=== PATIENT | female | born 2005 | race African-American/Black ===

== ENCOUNTER 2025-01-24 14:41 | Emergency (ER) | payer MEDICAID, SELFPAY ==
--- NOTE | ~2025-01-24 | XR_ITS ---
CHEST RADIOGRAPH, PA AND LATERAL CLINICAL HISTORY: chest pain . COMPARISON: None available TECHNIQUE: PA and lateral views of the chest. FINDINGS The cardiomediastinal silhouette is unremarkable. The lungs are clear. Visualized osseous structures and soft tissues are unremarkable. IMPRESSION: No focal infiltrate or effusion. Reviewed, dictated and finalized at location A.
[2025-01-24 14:43] VITALS: BP 132/101; PULSE 85; RESP 20; TEMP 36.9; O2SAT 100
--- NOTE | 2025-01-24 14:43 | ECG_ITS ---
Test Date: 2025-01-24 14:50:29 Measurements Intervals [place] Rate: 75 P: 29 CA: 137 QRS: 50 QRSD: 93 T: 40 QT: 363 QTc: 408 Interpretive Statements SINUS RHYTHM CANNOT R/O SEPTAL INFARCT, AGE INDETERMINATE BASELINE ARTIFACT- I, II, III, AVR, AVL, AVF, V1, V3, V5 ABNORMAL ECG No previous ECG available for comparison Electronically Signed On 01-24-2025 17:19:20 CDT by Robert Frias D.O.
[2025-01-24 14:51] VITALS: PULSE 79; O2SAT 99
[2025-01-24 14:52] VITALS: O2SAT 99
--- NOTE | 2025-01-24 14:57 | ED_ITS ---
HPI - Chest Pain General Chief Complaint: Chest Pain Stated Complaint: syncope, CP, anxiety History of Present Illness HPI narrative: 19-year-old female with history of asthma presenting to the emergency department after syncope and chest pain. Patient states that she was feeling anxious and started having tingling in her both hands while he was working. She felt dizzy and lightheaded and passed out briefly. Regained consciousness quickly without any apparent injuries. She states she is having chest pain and feels anxious. Has been using her asthma inhaler recently without needing to use it today. No difficulty breathing right now, no headache, vision changes, trauma, abdominal pain, back pain. Denies chance of . She was otherwise in her normal state of health. No history of any cardiac disease in herself. Does not take any prescription medications otherwise. Related Data Allergies Allergy/AdvReac Type Severity Reaction Status Date / Time No Known Allergies Allergy Verified 01/24/25 14:48 Review of Systems 2 Review of Systems: As reviewed above in HPI Exam 2 Narrative: GENERAL: [Well-appearing, well-nourished, and in no acute distress.] HEAD: [Normocephalic, atraumatic.] EYES: [PERRLA and EOMI.] ENT: Nares clear, no rhinorrhea or epistaxis. Mucous membranes moist. NECK: Supple. CHEST: [Clear to auscultation. No respiratory distress.] HEART: [Regular rate and rhythm]. No murmur heard. [Normal peripheral pulses.] ABDOMEN: [Soft, nondistended], [nontender], [No rigidity or guarding] EXTREMITIES: Normal range of motion. [No edema.] SKIN: Warm, dry, no rash. NEURO: [No focal deficits]. Alert and oriented [x3.] PSYCH: Tearful affect and anxious Course Vital Signs Vital signs: Vital Signs Temperature 36.9 C 01/24/25 14:43 Pulse Rate 85 01/24/25 14:43 Respiratory Rate 01/24/25 14:43 Blood Pressure 132/101 H 01/24/25 14:43 Pulse Oximetry 100 01/24/25 14:43 Oxygen Delivery Room Air 01/24/25 14:43 Temperature 36.9 C 01/24/25 14:43 Pulse Rate 87 01/24/25 16:11 Respiratory Rate 01/24/25 16:11 Blood Pressure 114/85 01/24/25 16:11 Pulse Oximetry 100 01/24/25 16:11 Oxygen Delivery Room Air 01/24/25 14:52 MDM - Chest Pain MDM Narrative Medical decision making narrative: 19-year-old female with history of asthma presenting to the emergency department with anxious feelings, tingling in her hands, lightheadedness dizziness and a brief syncopal episode. Endorses chest pain at this time. Examination is reassuring. Patient is anxious appearing but not any acute distress with normal vital signs without any tachycardia, fever, hypoxia significant blood pressure elevations or hypotension. She is strong symmetric pulses, clear breath sounds throughout both lung martinez without any wheezing, tachypnea or decreased aeration. No signs of DVT on examination. Meets low Wells criteria. Suspect anxiety, vasovagal syncope, orthostatic syncope, less likely cardiovascular or cardiothoracic process such as ACS or pneumonia/pneumothorax. Clear breath sounds do not suspect asthma exacerbation. Chest x-ray was ordered, EKG, blood work was CBC, CMP, magnesium level. test ordered. She was given a fluid bolus and Toradol and re-evaluated. EKG was nonischemic without ectopy. Workup shows no leukocytosis or anemia. Normal platelet count. Electrolytes are unremarkable. Normal renal function. Normal hepatic function. Normal glucose. Negative test. Chest x-ray without any infiltrate or effusion. EKG shows normal sinus rhythm, no signs of ST segment elevations, depressions. Patient is stable from hemodynamic perspective and has unremarkable workup here. Clinically she is safe and stable for discharge home with primary care provider follow-up. Medical Records Data Attestation: I reviewed the patient's medical records. Lab Data Attestation: I reviewed the patient's lab results. 01/24/25 15:01 01/24/25 15:01 Labs: Lab Results 01/24/25 01/24/25 Range/Units 14:59 15:01 WBC 5.0 (4.5-10.0) K/mm3 RBC 4.88 (4.2-5.4) M/mm3 Hgb 13.2 (12.0-15.0) g/dL Hct 40.5 (37.0-47.0) % MCV 83.0 (80-100) fl MCH 27.0 (26-34) pg MCHC 32.6 (32-36) g/dl RDW 12.7 (11.5-14.5) % Plt Count 251 (150-375) k/mm3 MPV 10.0 (7.4-10.4) fl Immature Gran % (Auto) 0.4 (0-0.5) % Neut % (Auto) 47.8 (45.5-73.1) % Lymph % (Auto) 41.6 (18.3-44.2) % Coles % (Auto) 8.8 H (2.6-8.5) % Eos % (Auto) 1.0 (0-4.4) % Baso % (Auto) 0.4 (0.2-1.2) % Lymph # (Auto) 2.07 (0.9-3.2) K/mm3 Coles # (Auto) 0.4 (0.1-0.6) K/mm3 Eos # (Auto) 0.1 (0-0.3) K/mm3 Baso # (Auto) 0.0 (0.0-0.1) K/mm3 Abs Immat Gran (auto) 0.02 (0.00-0.031) K/mm3 Absolute Neuts (auto) 2.4 (1.3-6.7) K/mm3 Absolute Nucleated RBC 0.000 (0.0-0.012) K/mm3 Nucleated RBC % 0.0 (0.0-0.2) % Sodium 137 (137-145) mmol/L Potassium 3.9 (3.4-5.0) mmol/L Chloride 108 H (98-107) mmol/L Carbon Dioxide 19 L (22-30) mmol/L Anion Gap 10 (4-12) mmol/L BUN 19 H (7-17) mg/dL Creatinine 0.78 (0.7-1.0) mg/dL Estim Creat Clear Calc 109 ml/min Estimated GFR > 60 (59 - ) Glucose 93 (65-110) mg/dL POC Capillary Glucose 87 (65-105) mg/dl Calcium 9.4 (8.4-10.2) mg/dL Magnesium 1.9 (1.6-2.3) mg/dL Total Bilirubin 0.5 (0.2-1.3) mg/dL AST 25 (14-36) U/L ALT 24 (6-35) U/L Alkaline Phosphatase 65 (38-126) U/L Total Protein 7.8 (6.3-8.2) g/dL Albumin 4.5 (3.5-5.1) g/dL Serum HCG, Qual Negative Imaging Data Attestation: I personally reviewed and interpreted this imaging study as follows: My impression: Impressions Chest X-Ray 01/24/25 15:35 IMPRESSION: No focal infiltrate or effusion. ECG Data EKG #1: Attestation: I personally reviewed and interpreted this ECG as follows: ECG completion date: 01/24/25 ECG completion time: 14:50 Prior ECG tracings: not available for review Interpretation: No ST segment elevations, depressions or inversions. QTC 408, QRS 93, TX interval 137. Rate of 75 beats per minute. No previous EKG for comparison. No ectopy. Final interpretation normal sinus rhythm. Discharge Plan Discharge Clinical Impression: Chest pain, Syncope and collapse Patient Disposition: Home Condition: Stable Instructions: Antibiotic Form, Chest Pain (ED), Syncope (DC) Additional Instructions: Your laboratory studies, imaging and EKG are all reassuring and normal appearing here. No urgent or emergent concerns are found today. Follow-up with your regular doctor regarding your presentation here in the emergency department. Return with any emergent concerns. Patient Language: Citizen Of [place] Follow-up/Referrals: PHYSICIAN,[employer] BUSINESS ANALYST [Primary Care Provider] - Time of Disposition: 15:48 Quality HEART score for chest pain patients History: slightly suspicious ECG: normal Age: < or = to 45 years Risk factors: no risk factors known Troponin: < or = to 1x normal limit Heart score: 0
[2025-01-24 15:02] LABS: Glucose Point of Care 87 mg/dl (65-105)
[2025-01-24 15:06] LABS: Basophils Percent Auto 0.4 % (0.2-1.2); Eosinophils Absolute Auto 0.1 K/mm3 (0-0.3); Hematocrit 40.5 % (37.0-47.0); Hemoglobin 13.2 g/dL (12.0-15.0); Immature Granulocyte Absolute 0.02 K/mm3 (0.00-0.031); Immature Granulocyte Percent A 0.4 % (0-0.5); Lymphocytes Absolute Auto 2.07 K/mm3 (0.9-3.2); Lymphocytes Percent Auto 41.6 % (18.3-44.2); Mean Corpuscular HGB Conc 32.6 g/dl (32-36); Monocytes Absolute Auto 0.4 K/mm3 (0.1-0.6); Monocytes Percent Auto 8.8 % (2.6-8.5); Neutrophils Absolute Auto 2.4 K/mm3 (1.3-6.7); Neutrophils Percent Auto 47.8 % (45.5-73.1); Platelet Count Result 251 k/mm3 (150-375); Red Blood Count 4.88 M/mm3 (4.2-5.4); Red Cell Distribution Width 12.7 % (11.5-14.5)
[2025-01-24] MEDS: LACTATED RINGERS 1,000 ML 999 ML IV CONT (15:10)
[2025-01-24] MEDS: KETOROLAC 15 MG/ML VIAL (*BKC) IV PUSH (15:10)
[2025-01-24 15:16] LABS: SPREG INTERNAL CONTROL Positive; Serum Qual hCG Negative
[2025-01-24 15:17] LABS: Alanine Aminotransferase 24 U/L (6-35); Albumin Level 4.5 g/dL (3.5-5.1); Alkaline Phosphatase 65 U/L (38-126); Anion Gap 10 mmol/L (4-12); Aspartate Amino Transferase 25 U/L (14-36); Bilirubin,Total 0.5 mg/dL (0.2-1.3); Blood Urea Nitrogen 19 mg/dL (7-17); Calcium 9.4 mg/dL (8.4-10.2); Carbon Dioxide 19 mmol/L (22-30); Chloride 108 mmol/L (98-107); Estimated CRCL calculation 109 ml/min; Estimated Glomerular Filt Rate > 60; Glucose 93 mg/dL (65-110); Magnesium 1.9 mg/dL (1.6-2.3); Potassium 3.9 mmol/L (3.4-5.0); Sodium 137 mmol/L (137-145); Total Protein 7.8 g/dL (6.3-8.2)
--- OUTSIDE RECORDS SUMMARY | 2025-01-24 15:32 | XMS_ITS | Clinical Summary ---
Author Organization [facility] Address [address] [place] [address] Care Team Providers Care Gyroscope Technician Name Role Phone Dong Monet MD Primary Care Provider [phone] Allergies No known active allergies Medications loratadine (CLARITIN) 10 mg tablet Take 1 tablet (10 mg total) by mouth daily 20 tablet 3 Active ibuprofen (ADVIL,MOTRIN) 800 mg tablet Take 1 tablet (800 mg total) by mouth 3 (three) times a day 21 tablet 3 Active fluticasone propionate (FLONASE) 50 mcg/actuation nasal spray Administer 1 spray into each nostril 2 (two) times a day 16 g 3 Active Active Problems No known active problems Medical History Medical History Date Comments Asthma Social History Tobacco Use Types Packs/Day Years Used Date Smoking Tobacco: Never Assessed Personal Safety Answer Date Recorded Getting School Help Needed Denies 10/02 Comments No Sex and Gender Information Value Date Recorded Sex Assigned at Not on file 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 Gender Identity Not on file Sexual Orientation Not on file Obstetrics History Last Filed Vital Signs Vital Sign Reading Time Taken Comments Blood Pressure 115/79 10/22/2022 8:06 PM CDT Pulse 75 10/22/2022 8:06 PM CDT Temperature 36.6 C (97.8 F) 10/22/2022 4:24 PM CDT Respiratory Rate 16 10/22/2022 8:06 PM CDT Oxygen Saturation 98% 10/22/2022 8:06 PM CDT Inhaled Oxygen Concentration - - Weight 81.4 kg (179 lb 6.4 oz) 10/22/2022 4:24 P M CDT Height 162.6 cm (5' 4) 10/22/2022 4:24 PM CDT Body Mass Index 30.79 10/22/2022 4:24 PM CDT Plan of Treatment Health Maintenance Due Date Last Done Comments Depression Screening 2004 Hepatitis C Screening 2004 Varicella Vaccines (2 of 2 - 2-dose childhood series) 05/18/2009 02/23/2009 Regular Well Visit/Exam 18-64 2022 Pneumococcal vaccine <65 (1 of 2 - PCV) 2023 Covid-19 Vaccine (4 - 2023-2 5 season) 2024 08/15/2021, 01/13/2021, 12/23/2020 Influenza Vaccine (Season Ended) 2025 07/24/2022, 08/29/2020, 07/08/2018, Additional history exists DTaP/Tdap/Td Vaccine (7 - Td or Tdap) 08/10/2025 08/10/2015, 02/23/2009, 08/30/2006, Additional history exists Hepatitis B Screening Completed 2004 HPV Vaccines Completed 06/18/2016, 08/10/2015 Meningococcal Vaccine Completed 08/29/2020, 015 Meningococcal B Vaccine Completed 09/29/2020, 08/29 Insurance [facility] [place] [id number] [facility] [employer] Care Teams Gyroscope Technician Relationship Specialty Start Date End Date Dong Monet MD [address] [place] [phone] PCP - General 10/06/16
--- OUTSIDE RECORDS SUMMARY | 2025-01-24 15:32 | XMS_ITS | Clinical Summary ---
Author Organization [facility] Address [address] [place] [address] Care Team Providers Care Veterans Service Officer Name Role Phone Dong Monet MD Unavailable [phone] None, Physician Primary Care Provider Unavailabl e Source Comments [facility],non-owned Affiliates and Associated Physician Practices is amultiple site organization consisting of ambulatory clinics and hospital sitesin [place], [place], [place] and [place]. This disclosure is being madepursuant to the Care Everywhere program and may not contain all information available regarding this patient. Last updated 18.[facility] Allergies No known active allergies Medications * This document contains information received from the source organization and may not represent a complete record from that organization. * Be aware that medications may not be up to date on this document. Alwaysverify current medications with the patient. hydrOXYzine hcl (ATARAX) 10 MG tabletIndicatio ns:Anxiety Neurosis (Inactive) Take 1 tablet by mouth 2 times daily Reasons: Anxiety Neurosis 30 tablet 3 8 Active albuterol HFA (PROVENTIL;VENT DANIS;PROAIR) 108 (90 BASE) MCG/ACT inhalerIndicati ons:Asthma Inhale 2 puffs by mouth every 4 hours as needed for Shortness of Breath Reasons: Asthma 1 Inhaler 3 8 Active montelukast (SINGULAIR) 10 MG tabletIndicatio ns:Asthma Take 0.5 tablets by mouth at bedtime Reasons: Asthma 30 tablet 3 8 Active budesonide-form oterol (SYMBICORT) 80-4.5 MCG/ACT inhalerIndicati ons:Asthma Inhale 2 puffs by mouth 2 times daily Reasons: Asthma 1 Inhaler 3 8 Active citalopram (CELEXA) 10 MG tabletIndicatio ns:Aggressive Behavior,Depres joe Take 1 tablet by mouth once daily Reasons: Aggressive Behavior, Depression 30 tablet 3 8 Active benzonatate (Tessalon) 100 MG capsule Take 2 (two) capsules by mouth every 8 hours as needed for Cough 20 capsule 4 Active albuterol HFA (Proventil; Ventolin; Proair) 108 (90 Base) MCG/ACT inhaler Inhale 2 (two) puffs by mouth every 6 hours as needed for Shortness of Breath or Wheezing Please dispense with spacer. 1 g 4 Active Active Problems Problem Noted Date Diagnosed Date Disruptive mood dysregulation disorder 8 Mononucleosis 10/07/2016 Assessment & Plan (10/08/2016 1:59 PM RESEARCH STATISTICIAN): Assessment: Kyleigh Khan is our 11 yof who has infectious mononucleousis. This is supported by fatigue, fever, and pharyngitis, as well as atypical lymphocytosis and +monospot. Plan: -Monitor I/O closely -Vitals q8 -Avoid contact sports until splenomegaly is resolved and she is cleared by her pcp Assessment & Plan (10/07/2016 9:52 PM RESEARCH STATISTICIAN): Assessment: Kyleigh Khan is our 11 yof who has infectious mononucleousis. This is supported by fatigue, fever, and pharyngitis, as well as atypical lymphocytosis and +monospot. Plan: -Admit to libia Trevino team -I/O -Vitals q8 -Avoid contact sports at discharge (patient denies any sports) for 4-6 weeks with splenomegaly noted on exam ADHD (attention deficit hyperactivity disorder) by history Resolved Problems Problem Noted Date Diagnosed Date Resolved Date Dehydration 10/07/2016 10/21/2016 Assessment & Plan (10/08/2016 2:02 PM RESEARCH STATISTICIAN): Assessment: Appears well hydrated on exam. OSH labs demonstrate euvolemic hyponatremia with no acidosis or anion gap. Cause is unclear but could 2/2 SIADH with acute illness. She has received two 1L NS boluses thus far. Plan: -Patient tolerating PO and will hold off on IVF at this point -IF PO decreases, will plan on starting MIIVF Assessment & Plan (10/07/2016 9:56 PM RESEARCH STATISTICIAN): Assessment: Appears well hydrated on exam. OSH labs demonstrate euvolemic hyponatremia with no acidosis or anion gap. Cause is unclear but could 2/2 SIADH with acute illness. She has received two 1L NS boluses thus far. Plan: -Patient tolerating PO and will hold off on IVF at this point -IF PO decreases, will plan on starting some MIIVF -Plan to recheck Na in AM to follow up for normal values Social History Tobacco Use Types Packs/Day Years Used Date Smoking Tobacco: Never Smokeless Tobacco: Never Alcohol Use Standard Drinks/Week Comments No 0 (1 standard drink = 0.6 oz pur e alcohol) AUDIT-C Answer Date Recorded Q1: How often do you have a drink containing alcohol? Never 08/06/2024 Q2: How many drinks containi ng alcohol do you have on a typical day when you are drinking? Patient does not drink Q3: How often do you have si x or more drinks on one occasion? Never 08/06/2024 Comments No Sex and Gender Information Value Date Recorded Sex Assigned at Not on file Legal Sex Female 6:54 PM CDT Gender Identity Not on file Sexual Orientation Not on file Last Filed Vital Signs Vital Sign Reading Time Taken Comments Blood Pressure 118/79 08/06/2024 10:05 PM RESEARCH STATISTICIAN Pulse 104 08/06/2024 10:05 PM RESEARCH STATISTICIAN Temperature 37.7 C (99.9 F) 08/06/2024 10:05 PM RESEARCH STATISTICIAN Respiratory Rate 18 08/06/2024 10:05 PM RESEARCH STATISTICIAN Oxygen Saturation 97% 08/06/2024 10:05 PM RESEARCH STATISTICIAN Inhaled Oxygen Concentration - - Weight 83.9 kg (185 lb) 08/06/2024 7:43 PM RESEARCH STATISTICIAN Height 162.6 cm (5' 4) 08/06/2024 7:43 PM RESEARCH STATISTICIAN Body Mass Index 31.76 08/06/2024 7:43 PM RESEARCH STATISTICIAN Plan of Treatment Health Maintenance Due Date Last Done Comments HIV SCREENING 2019 HPV VACCINE (1 - 3-dose series) 2019 CHLAMYDIA/GONORRHEA SCREENING 2020 MENINGOCOCCAL (Group B) VACCINE SHARED DECISION-MAKING (1 of 2 - Standard) 2020 HEPATITIS C SCREENING 03/24/2022 DTAP/TDAP/TD VACCINES (1 - Tdap) 2023 HEPATITIS B VACCINE (1 of 3 - 19+ 3-dose series) 2023 COVID-19 VACCINE (4 - 2023- season) 2024 08/15/2021, 01/13/2021, 12/23/2020 DEPRESSION SCREENING 08/12/2024 INFLUENZA VACCINE (Season Ended) 2025 07/24/2022, 07/08/2018, 06/18/2016, Additional history exists ZOSTER VACCINE (1 of 2) 2054 HIB VACCINE Aged Out No longer eligi ble based on patient's age to complete this topic MENINGOCOCCAL GROUPS A/C/Y/W VACCINE Aged Out No longer eligible based on patient's age to complete this topic PNEUMOCOCCAL VACCINE Aged Out No long er eligible based on patient's age to complete this topic Insurance [place] [address] [place] MED[place] STATE [employer] [place]AN Advance Directives * Full Code (Latest Code Status on File) Date Activated Date Inactivated Comments 10/28/2017 11:43 AM 10/30/2017 6:10 PM * Full Code Date Activated Date Inactivated Comments 10/07/2016 8:16 PM 10/08/2016 6:00 PM Care Teams Veterans Service Officer Relationship Specialty Start Date End Date None, Physician PCP - General 08/06/24 Dong Monet MD [address] [place] [phone] 10/27/17
--- OUTSIDE RECORDS SUMMARY | 2025-01-24 15:32 | XMS_ITS | Continuity of Care Document ---
Author Organization [facility] Address [address] [place] [address] Phone Care Team Providers Care Computer Typesetter Keyliner Name Role Phone Unavailable Unavailable Unavailable Procedures Procedure Date HCY - Age 1-4, Established Patient, Full Screening LEAD BLOOD COUNT; HEMOGLOBIN (HGB) 7 VFC-HEPATITIS A VACCINE, PED IATRIC/ADOLESCENT DOSAGE-2 DOSE SCHEDULE, IM USE HCY - Age 1-4, Established Patient, Full Screening VFC-DIPHTHERIA, TETANUS TOXO IDS, & ACELLULAR PERTUSSIS VACCINE (DTAP), IM USE VFC-HEPATITIS A VACCINE, PED IATRIC/ADOLESCENT DOSAGE-2 DOSE SCHEDULE, IM USE OFFICE O/P EST 5 MIN VFC-HEMOPHILUS INFLUENZA B V ACCINE (HIB), HBOC CONJ (4 DOSE SCHEDULE), IM USE LEAD VFC-MEASLES, MUMPS & RUBELLA VIRUS VACCINE (MMR), LIVE, SUBQ/JET INJECTION USE VFC-VARICELLA VIRUS VACCINE, LIVE, SUBQ USE VFC-POLIOVIRUS VACCINE, INACTIVATED, (IP V), SUBQ USE VFC-DIPHTHERIA, TETANUS TOXO IDS, & ACELLULAR PERTUSSIS VACCINE (DTAP), IM USE VFC-PNEUMOCOCCAL CONJUGATE V ACCINE, POLYVALENT, CHILDREN < 5 YEARS, IM USE BLOOD COUNT; HEMOGLOBIN (HGB) 6 SKIN TEST; TUBERCULOSIS, INTRADERMAL Aug HCY - Age 1-4, Established Patient, Full Screening Advance Directives Directive Yes / No Effective Date File Name No Information Encounters Encounter Description Practice Location Reason(s) For Visit Diagnoses Date Provider Providers Copied on Encounter [facility] , [address], [place], [place], [address], tel:[phone] Historic Immunization Location No Information 9 No Information HCY - Age 1-4, Established Patient, Full Screening [facility] , [address], [place], [place], [address], tel:[phone] [facility] EXAMISSUE OF MED CERTIF NEC 7 No Information HCY - Age 1-4, Established Patient, Full Screening [facility] , [address], [place], [place], [address], tel:[phone] [facility] VACCIN FOR SINGL DIS NOSROUTIN CHILD HEALTH EXAMASTHMA NOSNEED PRPHYL VC VRL HEPAT 7 [facility], [place], [place], [address], [place]. tel:[phone] OFFICE O/P EST 5 MIN [facility] , [address], [place], [place], [address], tel:[phone] [facility] FOLLOW-UP EXAM NOS 6 No Information HCY - Age 1-4, Established Patient, Full Screening [facility] , [address], [place], [place], [address], tel:[phone] [facility] EXAM 6 No Information Family History Family Member Type Diagnosis Age At Onset No Information Immunizations Vaccine Date Status Comments VFC-HEPATITIS A VACCINE, PEDIATRIC/ADOLESCENT DOSAGE-2 DOSE SCHEDULE, IM USE administered Source: New Immuni zation Record VFC-HEPATITIS A VACCINE, PEDIATRIC/ADOLESCENT DOSAGE-2 DOSE SCHEDULE, IM USE administered Source: New Immuni zation Record VFC-DIPHTHERIA, TETANUS TOXOIDS, & ACELLULAR PERTUSSIS VACCINE (DTAP), IM USE administered Source: New Immuniza tion Record VFC-MEASLES, MUMPS & RUBELLA VIRUS VACCINE (MMR), LIVE, SUBQ/JET INJECTION USE administered Source: New Immun ization Record VFC-POLIOVIRUS VACCINE, INACTIVATED, (IPV), SUBQ USE administered Source: New Immunization Record VFC-VARICELLA VIRUS VACCINE, LIVE, SUBQ USE administered Source: New Immuniza tion Record VFC-HEMOPHILUS INFLUENZA B VACCINE (HIB), HBOC CONJUGATE (4 DOSE SCHEDULE), IM USE administered Source: New Im munization Record VFC-PNEUMOCOCCAL CONJUGATE VACCINE, POLYVALENT, CHILDREN < 5 YEARS, IM USE administered Source: New Immuniza tion Record VFC-DIPHTHERIA, TETANUS TOXOIDS, & ACELLULAR PERTUSSIS VACCINE (DTAP), IM USE administered Source: New Immuniza tion Record VFC-POLIOVIRUS VACCINE, INACTIVATED, (IPV), SUBQ USE administered Source: New Immunization Record VFC-HEMOPHILUS INFLUENZA B VACCINE (HIB), HBOC CONJUGATE (4 DOSE SCHEDULE), IM USE administered Source: New Im munization Record VFC-PNEUMOCOCCAL CONJUGATE VACCINE, POLYVALENT, CHILDREN < 5 YEARS, IM USE administered Source: New Immuniza tion Record VFC-DIPHTHERIA, TETANUS TOXOIDS, & ACELLULAR PERTUSSIS VACCINE (DTAP), IM USE administered Source: New Immuniza tion Record VFC-POLIOVIRUS VACCINE, INACTIVATED, (IPV), SUBQ USE administered Source: New Immunization Record VFC-HEPATITIS B VACCINE, PEDIATRIC/ADOLESCENT, (3-DOSE SCHEDULE), IM USE administered Source: New Immuniza tion Record VFC-HEMOPHILUS INFLUENZA B VACCINE (HIB), HBOC CONJUGATE (4 DOSE SCHEDULE), IM USE administered Source: New Im munization Record VFC-PNEUMOCOCCAL CONJUGATE VACCINE, POLYVALENT, CHILDREN < 5 YEARS, IM USE administered Source: New Immuniza tion Record VFC-DIPHTHERIA, TETANUS TOXOIDS, & ACELLULAR PERTUSSIS VACCINE (DTAP), IM USE administered Source: New Immuniza tion Record Payers Payer name Insurance type Covered alliance party ID Authoriza tion(s) No Information Social History Type Description Quantity Date Captured Comments Sex Female Smoking Status No Information Chief Complaint And Reason For Visit No Information Reason For Referral Reason For Referral No Information History Of Present Illness Encounter Date Complaint History Of Prese nt Illness No Information Functional Status Date Functional Assessmen t No Information Instructions Date Instruction Additional Infor mation No Information Assessments Type Assessment Date No Information Patient Care Teams Name Effective Dates (start - stop) Status Members No Information
--- OUTSIDE RECORDS SUMMARY | 2025-01-24 15:32 | XMS_ITS | Referral Summary ---
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 Gender Identity Not on file Sexual Orientation [...] 10/22/2022 4:24 PM CDT Plan of Treatment Not on file Insurance [facility] Care Teams Director Title Relationship Specialty Start Date End Date Dong Monet MD [facility] [facility] [address] [place] [phone] PCP - General 10/06/16
--- OUTSIDE RECORDS SUMMARY | 2025-01-24 15:32 | XMS_ITS | Clinical Summary ---
Author Organization [facility] Address [address] [place] [address] Phone Care Team Providers Care [employer] Name Role Phone Dong Monet MD Primary Care Provider Unav ailable Allergies No known active allergies Medications dextroamphetami ne-amphetamine (ADDERALL) 10 mg tablet Take 10 mg by mouth daily. Active albuterol HFA 90 mcg inhaler Take 2 Puffs by inhalation every 4 hours as needed for Shortness of Breath. Active ondansetron (ZOFRAN ODT) 4 mg Tablet, Rapid Dissolve Take 1 Tablet (4 mg) by mouth every 6 hours as needed for Nausea. 8 Tablet 7 Active Social History Tobacco Use Types Packs/Day Years Used Date Smoking Tobacco: Never Smokeless Tobacco: Never Alcohol Use Standard Drinks/Week Comments No 0 (1 standard drink = 0.6 oz pur e alcohol) Comments Unknown Sex and Gender Information Value Date Recorded Sex Assigned at Not on file Legal Sex Female 11:24 AM CDT Gender Identity Not on file Sexual Orientation Not on file Last Filed Vital Signs Vital Sign Reading Time Taken Comments Blood Pressure 136/93 12/01/2016 7:32 PM CDT Pulse 87 12/01/2016 5:50 PM CDT Temperature 37.2 C (98.9 F) 12/01/2016 7:32 PM CDT Respiratory Rate 18 12/01/2016 7:32 PM CDT Oxygen Saturation 100% 12/01/2016 7:32 PM CDT Inhaled Oxygen Concentration - - Weight 61 kg (134 lb 7.7 oz) 12/01/2016 11:30 AM CDT Height - - Body Mass Index - - Plan of Treatment Health Maintenance Due Date Last Done Comments CHLAMYDIA SCREENING (ANNUAL) 11-24 YEARS 2015 HPV VACCINES (1 - 3-dose series) 2019 DTAP/TDAP/TD VACCINES (1 - Tdap) 2023 HEPATITIS B VACCINES (1 of 3 - 19+ 3-dose series) 03/12 INFLUENZA VACCINE (#1) 2024 Care Teams [employer] Relationship Specialty Start Date End Date Dong Monet MD PCP - General Pediatrics 12/01/16
--- OUTSIDE RECORDS SUMMARY | 2025-01-24 15:32 | XMS_ITS | Continuity of Care Document ---
Author Organization [employer] Address [address] [place] [address] Phone Care Team Providers Care Inventory Control Associate Name Role Phone Rohan Pickard MD Unavailable Unavailable Allergies, Adverse Reactions, Alerts Substance Reaction Status Criticality No Known Allergies Active No Inform ation Medications Medication Instructions Dosage Effective Dates (start - stop) Status Comments Prilosec OTC 20 mg tablet,delayed release 1 po q am upon awakening - Active FAMOTIDINE 20 MG TABLET TAKE 1 TABLET BY MOUTH TWICE A DAY - Active rizatriptan 10 mg disintegrating tablet DISSOLVE 1 TABLET ON TOP OF TONGUE, THEN SWALLOW ONCE, MAY REPEAT EVERY 2 HRS MAX 30 MG/24HRS - Active Flonase Allergy Relief 50 mcg/actuation nasal spray,suspension 1 spray by intranasal route daily ;administer into each nostril - Active Symbicort 160 mcg-4.5 mcg/actuation HFA aerosol inhaler inhale 2 puff by inhalation route 2 times every day in the morning and evening 2.00 puff - Active hydrocortisone 1 % topical ointment 1 applic by topical route 2 to 4 times per day prn rash - Active albuterol sulfate HFA 90 mcg/actuation aerosol inhaler inhale 2 puff by inhalation route every 4 hours as needed 2 puff - Active Lo Loestrin Fe 1 mg-10 mcg (24)/10 mcg (2) tablet TAKE 1 TABLET BY MOUTH EVERY DAY - Active Xyzal 5 mg tablet 1 tablet by oral route daily - Active albuterol sulfate 2.5 mg/3 mL (0.083 %) solution for nebulization inhale 3 milliliter (2.5MG) by nebulization route every 4 hours as needed - Active Procedures Procedure Date OFFICE SSVNP-ERJ-ECBORYRH TEST, HCG, QL (U) ESSE 2022 URINALYSIS, DIPSTICK (UA) - Office Lab J CULTURE, URINE COLONY ESTIMATION FROM ART HEALTH RISK ASSESSMENT, PATIENT-FOCUSED PREVENTATIVE-EST: 18-39 OFFICE VQNIS-OVG-VHNYYEJD RAPID STREP A INFLUENZA, RAPID INFLUENZA B, RAPID - OFFICE LAB 023 OFFICE HHGSC-PHZ-DHSBQPJI HEALTH RISK ASSESSMENT, PATIENT-FOCUSED COVID-19, Amplified Probe Technique INFLUENZA, RAPID INFLUENZA B, RAPID - OFFICE LAB 022 ([facility]) FLU VAC NO PRSV 4 CANDIDO 0.5mL DOSA GE OFFICE AACHL-SSU-MNURLTEJ RAPID STREP A CULTURE, PRESUMPATIVE, SCREENING ONLY De OFFICE LUIQU-SHX-ESCYBFMG RAPID STREP A URINALYSIS, DIPSTICK (UA) - Office Lab N CULTURE, URINE COLONY ESTIMATION FROM ART OFFICE UZYMB-GKH-FUCWFJTA HEALTH RISK ASSESSMENT, PATIENT-FOCUSED TEST, HCG, QL (U) ESSE 2021 OFFICE DIBLH-FGP-RYVVRCEK OFFICE ZCMLJ-DGG-XCRRJQTI FORM CHARGE TEST, HCG, QL (U) ESSE May-19- 2022 Brief Emotional/Behavioral A ssessment, With Scoring/Doct, Per Stndrd Instrument Brief Emotional/Behavioral A ssessment, With Scoring/Doct, Per Stndrd Instrument HEALTH RISK ASSESSMENT, PATIENT-FOCUSED PREVENTATIVE-EST: 07-28 OFFICE UQPBW-MOU-HPRHBTNV COVID-19, Amplified Probe Technique RAPID STREP A CULTURE, PRESUMPATIVE, SCREENING ONLY Oc HEALTH RISK ASSESSMENT, PATIENT-FOCUSED OFFICE BXTVE-DVS-QTVDRJML COVID-19, Amplified Probe Technique HEALTH RISK ASSESSMENT, PATIENT-FOCUSED OFFICE UYWEA-QPM-VULAPPNO (Bexsero) Meningococcal Recombinant, Pro tein/Outer Membrane SCREENING TEST OF VISUAL ACUITY, QUANTIT ATIVE, BILATERAL AUDIOGRAM, SCREENING ([facility]) FLU VAC NO PRSV 4 CANDIDO 0.5mL DOSA GE ([facility])MENACTRA MENNING ADMINISTRATION J (Bexsero) Meningococcal Recombinant, Pro tein/Outer Membrane HEALTH RISK ASSESSMENT, PATIENT-FOCUSED Brief Emotional/Behavioral A ssessment, With Scoring/Doct, Per Stndrd Instrument PREVENTATIVE-EST: 07-28 OFFICE UYMWU-DPP-IYSFQYCV RAPID STREP A CULTURE, PRESUMPATIVE, SCREENING ONLY No OFFICE ENRTB-QQF-EDBRMGMO Additional supplies, materials, & Clinic al Staff Time During A PHE OFFICE XVKEH-GVN-UMHUAMDI RAPID STREP A CULTURE, PRESUMPATIVE, SCREENING ONLY Ma Brief Emotional/Behavioral A ssessment, With Scoring/Doct, Per Stndrd Instrument Brief Emotional/Behavioral A ssessment, With Scoring/Doct, Per Stndrd Instrument HEALTH RISK ASSESSMENT, PATIENT-FOCUSED OFFICE XGSGH-AWE-WIWI INFLUENZA, RAPID INFLUENZA B, RAPID - OFFICE LAB 020 RAPID STREP A HEALTH RISK ASSESSMENT, PATIENT-FOCUSED OFFICE SOZYF-IGR-UKZUPTJY Brief Emotional/Behavioral A ssessment, With Scoring/Doct, Per Stndrd Instrument Brief Emotional/Behavioral A ssessment, With Scoring/Doct, Per Stndrd Instrument OFFICE TVMVJ-AJL-AUKLUYDT Brief Emotional/Behavioral A ssessment, With Scoring/Doct, Per Stndrd Instrument Clin depression screen doc Brief Emotional/Behavioral A ssessment, With Scoring/Doct, Per Stndrd Instrument HEALTH RISK ASSESSMENT, PATIENT-FOCUSED OFFICE HQPFH-FAK-OUBOVEBH BODY MASS INDEX DOCD AUDIOGRAM, SCREENING Brief Emotional/Behavioral A ssessment, With Scoring/Doct, Per Stndrd Instrument Clin depression screen doc HEALTH RISK ASSESSMENT, PATIENT-FOCUSED PREVENTATIVE-EST: 07-28 BODY MASS INDEX DOCD [place] Medical Records Srvc Chrg [place] Medical Records Per Page Advance Directives Directive Yes / No Effective Date File Name No Information Encounters Encounter Description Practice Location Reason(s) For Visit Diagnoses Date Provider Providers Copied on Encounter [employer], [address], [place], [place], [address] , tel:[phone] [facility] No Information 4 Melly Madrigal. [address], [address], [place], [place], [address], [place]. tel:[phone] OFFICE [facility]KOM[facility]RG [facility], [address], [place], [place], [address] , tel:[phone] [facility] Pediatrics acute problem (chief complaint) Gastroesophageal reflux disease, unspecified whether esophagitis present 3 Melly Madrigal. [address], [address], [place], [place], [address], [place]. tel:[phone] Referring Provider: Rohan Barrera, [address], [place], [address] . tel:[phone] [facility], [address], [place], [place], [address] , tel: [phone] [facility] No Information 3 Rafal Armin. [address], [address], [place], [place], [address], [place]. tel:[phone] PREVENTATIVE -EST: 18-39 [facility], [address], [place], [place], [address] , tel: [phone] [facility] well exam (chief complaint)a sthma-contr ol (chief complaint)h eadache (chief complaint) Encounter for well adult exam with abnormal findingsBirth control counselingMigrain e without status migrainosus, not intractable, unspecified migraine typeBody mass index [BMI] pediatric, 85th percentile to less than 95th percentile for agePain of right shoulder regionModerate persistent asthma without complicationRouti ne screening for STI (sexually transmitted infection) 3 Rafal Armin. [address], [address], [place], [place], [address], . tel:[phone] Referring Provider: Armin Lyles, [address], [place], [address] . tel:[phone] OFFICE CHTEL-PXF-EW TAILED [facility], [address], [place], [place], [address] , tel: [phone] [facility] acute problem (chief complaint)a sthma-contr ol (chief complaint) Moderate persistent asthma with (acute) exacerbationAcute streptococcal pharyngitisAttent ion-deficit hyperactivity disorder, combined typeBirth control counselingMild intermittent asthma with (acute) exacerbation 3 Rafal Armin. [address], [address], [place], [place], [address], . tel:[phone] Referring Provider: [address], [place], [address] . tel:[phone] [facility], [address], [place], [place], [address] , tel: [phone] [facility] acute problem (chief complaint) Viral illnessModerate persistent asthma with (acute) exacerbationBody mass index [BMI] pediatric, 85th percentile to less than 95th percentile for age 2 Rafal Funez. [address], [address], [place], [place], [address], . tel:[phone] Referring Provider: [address] [facility], [place], [address] . tel:[phone] [facility]ICE APRUX[facility]AKM[facility], [address], [place], [place], [address] , tel: [phone] [facility] acute problem (chief complaint) Acute pharyngitis, unspecified etiologyBody mass index [BMI] pediatric, 85th percentile to less than 95th percentile for ageRight anterior knee painMigraine without status migrainosus, not intractable, unspecified migraine typeMotion sickness, initial encounter 2 Rafal Funez. [address], [address], [place], [place], [address], . tel:[phone] Referring Provider: [address], [place], [address] . tel:[phone] [facility]ICE [facility], [address], [place], [place], [address] , tel: [phone] [facility] acute problem (chief complaint) Urinary tract infection with hematuria, site unspecifiedHematu gabriela, unspecifiedBody mass index [BMI] pediatric, greater than or equal to 95th percentile for ageMild dehydrationAcute streptococcal pharyngitis Nov-0 3-202 2 Rafal [address]. [address], [address], [place], [place], [address], [place]. tel:[phone] Referring Provider: [address], [place], [address] . tel:[phone] [facility], [address], [place], [place], [address] , tel: [phone] [facility] acute problem (chief complaint)a sthma-contr ol (chief complaint)A DD/ADHD management (chief complaint) OCP (oral contraceptive pills) initiationAttenti on-deficit hyperactivity disorder, combined typeModerate persistent asthma without complicationBody mass index [BMI] pediatric, greater than or equal to 95th percentile for age Sep- 2 Rafal [address]. [address], [address], [place], [place], [address], [place]. tel:[phone] Referring Provider: [address], [place], [address] . tel:[phone] [facility] [address], [place], [place], [address] , tel:[phone] [facility] Right medial knee pain Sep- 2 Rafal Funez. [address], [address], [place], [place], [address], [place]. tel:[phone] OFFICE [facility]BZ[facility]TP[facility], [address], [place], [place], [address] , [place] tel: [phone] [facility] acute problem (chief complaint)h eadache (chief complaint) Patellar tendinitis of right kneeRight medial knee painMigraine without aura and without status migrainosus, not intractable Sep-0 2 Rafal [address], [address], [place], [place], [address], [place]. tel:[phone] Referring Provider: [address], [place], [address] . tel:[phone] [employer] [facility], [address], [place], [place], [address] , tel: [phone] [facility] No Information 2 Rafal Funez. [address], [address], [place], [place], [address], [place]. tel:[phone] Referring Provider: [address], [place], [address] . tel:[phone] PREVENTATIVE -EST: 07-28 [facility] [employer], [address], [place], [place], [address] , tel: [phone] [facility] well exam (chief complaint)a sthma-contr ol (chief complaint) Encounter for routine child health examination without abnormal findingsModerate persistent asthma without complicationCurre nt moderate episode of major depressive disorder, unspecified whether recurrentAttentio n-deficit hyperactivity disorder, combined typeSeasonal allergic rhinitis, unspecified triggerKeloidOCP (oral contraceptive pills) initiationAnxiety , generalizedBody mass index [BMI] pediatric, 85th percentile to less than 95th percentile for ageViral upper respiratory tract infection 2 Rafal [address]une[address]. [address], [address], [place], [place], [address], [place]. tel:[phone] Referring Provider: [address], [place], [address] . tel:[phone] OFFICE QVGCN-DDM-EX TAILED [facility], [address], [place], [place], [address] , tel: [phone] [facility] Pediatrics acute problem (chief complaint)a sthma-contr ol (chief complaint)s ore throat (chief complaint) Acute pharyngitis, unspecifiedEncoun ter for laboratory testing for COVID-19 virusModerate persistent asthma without complicationOverw eight 1 Rafal Funez. [address], [address], [place], [place], [address], . tel:[phone] Referring Provider: [address], [place], [address] . tel:[phone] OFFICE ZMOQU-YRJ-UP TAILED [facility], [address], [place], [place], [address] , tel: [phone] [facility] acute problem (chief complaint)A DD/ADHD management (chief complaint)a sthma-contr ol (chief complaint) Exposure to COVID-19 virusAttention-de ficit hyperactivity disorder, combined typeModerate persistent asthma without complicationCurre nt moderate episode of major depressive disorder, unspecified whether recurrentGastroes ophageal reflux disease without esophagitisBMI pediatric, 85% to less than 95th percentile for age December- 1 Rafal Funez. [address], [address], [place], [place], [address], . tel:[phone] Referring Provider: [address], [place], [address] . tel:[phone] [facility], [address], [place], [place], [address] , tel:[phone] [facility] 2nd Bexsero (chief complaint) No Information 1 Rafal Funez. [address], [address], [place], [place], [address], . tel:[phone] Referring Provider: [address], [place], [address] . tel:[phone] PREVENTATIVE -EST: 12-17 [facility], [address], [place], [place], [address] , [place] tel: [phone] [facility] Pediatrics well exam (chief complaint)a sthma-contr ol (chief complaint)A DD/ADHD management (chief complaint) Encntr for routine child health exam w/o abnormal findingsCurrent moderate episode of major depressive disorder, unspecified whether recurrentAttentio n-deficit hyperactivity disorder, combined typeModerate persistent asthma without complicationBMI pediatric, greater than or equal to 95% for age 1 Rafal Funez. [address], [address], [place], [place], [address], . tel:[phone] Referring Provider: [address], [place], [address] . tel:[phone] [facility]ICE [facility]FFRV[facility]CR[facility], [address], [place], [place], [address] , [place] tel: [phone] [facility] Pediatrics acute problem (chief complaint)a sthma-contr ol (chief complaint) Acute pharyngitis, unspecifiedModera te persistent asthma with (acute) exacerbationEncou nter for laboratory testing for COVID-19 virus 0 Rafal Funez. [address], [address], [place], [place], [address], [place]. tel:[phone] Referring Provider: [address], [place], [address] . tel:[phone] OFFICE [facility]GTN[facility]DG[facility], [address], [place], [place], [address] , [place] tel: [phone] [facility] Pediatrics acute problem (chief complaint) Acute pharyngitis, unspecifiedModera te persistent asthma with (acute) exacerbation 0 Melly Madrigal. [address], [address], [place], [place], [address], [place]. tel:[phone] Referring Provider: Rohan Barrera, [address], [place], [address] . tel:[phone] [facility]ICE [facility], [address], [place], [place], [address] , tel: [phone] [facility] Internal Medicine Telehealth (chief complaint)A DD/ADHD management (chief complaint)a sthma-contr ol (chief complaint) Attention-deficit hyperactivity disorder, combined typeSleep disturbanceCurren t moderate episode of major depressive disorder, unspecified whether recurrentModerate persistent asthma with (acute) exacerbationBMI pediatric, 85% to less than 95th percentile for ageSeasonal allergic rhinitis, unspecified triggerKeratosis pilarisModerate persistent asthma, uncomplicatedEnco unter for screening for depression 0 Rafal Mayoodore. [address], [address], [place], [place], [address], [place]. tel:[phone] Referring Provider: [address], [place], [address] . tel:[phone] OFFICE [facility]TO[facility], [address], [place], [place], [address] , [place] tel: [phone] [facility] acute problem (chief complaint)a sthma-contr ol (chief complaint) Streptococcal pharyngitisModera te persistent asthma with (acute) exacerbation 0 Rafal Armin. [address], [address], [place], [place], [address], [place]. tel:[phone] Referring Provider: [address], [place], [address] . tel:[phone] OFFICE TFSWR[facility]EPY[facility], [address], [place], [place], [address] , [place] tel: [phone] [facility] Pediatrics office visit (chief complaint)A DD/ADHD management (chief complaint) Current moderate episode of major depressive disorder, unspecified whether recurrentAttentio n-deficit hyperactivity disorder, combined typeSleep disturbanceBMI pediatric, 85% to less than 95th percentile for ageMotion sickness, initial encounterAttentio n-deficit hyperactivity disorder, combined type 0 Rafal Mayoodore. [address], [address], [place], [place], [address], [place]. tel:[phone] Referring Provider: [address], [place], [address] . tel:[phone] OFFICE YSFMX-KOT-PY TAILED [facility], [address], [place], [place], [address] , tel: [phone] [facility] ADD/ADHD management (chief complaint)a sthma-contr ol (chief complaint) Attention-deficit hyperactivity disorder, combined typeScreening, lipidScreening for diabetes mellitusBMI pediatric, 85% to less than 95th percentile for ageCurrent moderate episode of major depressive disorder, unspecified whether recurrentSleep disturbanceModera te persistent asthma, uncomplicated Sep-0 9 Rafal Funez. [address], [address], [place], [place], [address], [place]. tel:[phone] Referring Provider: [address], [place], [address] . tel:[phone] PREVENTATIVE -EST: 07-28 [facility], [address], [place], [place], [address] , tel: [phone] [facility] well exam (chief complaint) Encntr for routine child health exam w/o abnormal findingsModerate persistent asthma without complicationAtten tion-deficit hyperactivity disorder, combined typeBMI pediatric, 85% to less than 95th percentile for agePositive depression screening 9 Rafal Funez. [address], [address], [place], [place], [address], [place]. tel:[phone] Referring Provider: [address], [place], [address] . tel:[phone] [facility], [address], [place], [place], [address] , tel: [phone] [facility] No Information 9 Rafal Funez. [address], [address], [place], [place], [address], . tel:[phone] Referring Provider: [address], [place], [address] . tel:[phone] [facility], [address], [place], [place], [address] , [place] tel: [phone] [facility] acute problem (chief complaint)a sthma-contr ol (chief complaint) Acute streptococcal pharyngitisModera te persistent asthma with (acute) exacerbation 8 Rafal Funez. [address], [place], [place], [address], [place]. tel:[phone] Referring Provider: Armin Lyles, [facility] [address], [place], [address] . tel:[phone] [facility], [address], [place], [place], [address] , [place] tel: [phone] [facility] Encounter for routine childMononucleosi sModerate persistent asthma without complicationAtten tion-deficit hyperactivity disorder, combined type 7 Chiki Umana. [address] [place] [address] [place] [address], [address], [place]. tel:[phone] Referring Provider: Dong Monet, [address] [place] [address] [place] [address], [address] . tel:[phone] [facility], [address], [place], [place], [address] , [place] tel: [phone] [facility] Streptococcal pharyngitisOtalgi a of left ear 7 Chiki Umana. [address] [place] [address] [place] [address], [address], [place]. tel:[phone] Referring Provider: Dong Monet, [address] [place] [address] [address], [place], [address] . tel:[phone] [facility], [address], [place], [place], [address] , [place] tel: [phone] [facility] Otitis media, unspecified, right earURI, acuteModerate persistent asthma, uncomplicated 6 Chiki Umana. [address] [place] [address] [place] [address], [address], . tel:[phone] Referring Provider: Dong Monet, [address] [place] [address] [address] [facility], [place], [address] . tel:[phone] [facility], [address], [place], [place], [address] , tel: [phone] [facility] Streptococcal pharyngitisModera te persistent asthma, uncomplicated 6 Chiki Umana. [address] [place] [address] [place] [address], [address], . tel:[phone] Referring Provider: Dong Monet, [address] [place] [address] [address] [facility], [place], [address] . tel:[phone] [facility], [address], [place], [place], [address] , tel:[phone] [facility] Streptococcal pharyngitisModera te persistent asthma, uncomplicated 6 Chiki Umana. [address] [place] [address] [place] [address], [id number], . tel:[phone] Referring Provider: Dong Monet, [address] [place] [address] [address], [place], [address] . tel:[phone] [facility] [address], [place], [place], [address] , tel:[phone] [facility] Moderate persistent asthma, uncomplicatedEnco unter for routine child health examination without abnormal findingsAttention -deficit hyperactivity disorder, combined type Dec3 0 5 Chiki Umana. [address] [place] [address] [place] [address], [address], . tel:[phone] Referring Provider: Dong Monet, [address] [place] [address] [place] [address], [address] . tel:[phone] [facility], [address], [place], [place], [address] , tel: [phone] [facility] Asthma, unspecifiedStrep pharyngitis 4 Chiki Umana. [address] [place] [address] [address] [place] [address], [id number], . tel:[phone] Referring Provider: Dong Monet, [address] [place] [address] [address] [place] [address], [address] . tel:[phone] [facility], [address], [place], [place], [address] , tel: [phone] [facility] Asthma, unspecifiedRoutin e or child health checkATTN DEFICIT W HYPERACT 4 Chiki Umana. [address] [place] [address] [address] [place] [address], [id number], . tel:[phone] Referring Provider: Dong Monet, [address] [place] [address] [place] [address], [address] . tel:[phone] [facility], [address], [place], [place], [address] , tel: [phone] [facility] AsthmaViral gastroenteritis 4 Chiki Umana. [address] [place] [address] [address] [place] [address], [id number], . tel:[phone] Referring Provider: Dong Monet, [address] [place] [address] [address], [place], [address] . tel:[phone] [facility], [address], [place], [place], [address] , tel: [phone] [facility] EXTRINSIC ASTHMA, UNSPECIFIED 4 Melly Madrigal. [address], [place], [place], [address], [place]. tel:[phone] Referring Provider: Rohan Barrera, [address], [place], [address] . tel:[phone] [facility], [address], [place], [place], [address] , tel: [phone] [facility] INTRINSIC ASTHMA, UNSPECIFIED Feb-0 4 Chiki Umana. [address] [place] [address], [facility] [address] [place] [address], [id number], [place]. tel:[phone] Referring Provider: Dong Monet, [address] [place] [address] [address], [place], [address] . tel:[phone] [facility] [address], [place], [place], [address] , tel:[phone] [facility] Influenza VaccineRoutine child health examINTRINSIC ASTHMA NOSATTN DEFICIT W HYPERACTGastritis Routine infant or child health check Oct- 3 Chiki Umana. [address] [place] [address] [address] [place] [address], [id number], [place]. tel:[phone] Referring Provider: Dong Monet, [address] [place] [address] [place] [address], [address] . tel:[phone] [facility] [address], [place], [place], [id number] , tel:[phone] [facility] INTRINSIC ASTHMA, UNSPECIFIEDChest painAttention deficit disorder with hyperactivity Apr-2 3 3 Chiki Umana. [address] [place] [address] [address] [place] [address], [id number], . tel:[phone] Referring Provider: Dong Monet, [address] [place] [address] [place] [address], [address] . tel:[phone] [facility], [address], [place], [place], [id number] , tel: [phone] [facility] Asthma, exacerbationRash and nonspecific skin eruption 3 Chikinafisa Umana. [address] [place] [address], [address], [place], [place], [id number], . tel:[phone] Referring Provider: Dong Monet, [address] [place] [address] [address], [place], [address] . tel:[phone] [employer] [facility], [address], [place], [place], [id number] , tel: [phone] [facility] Asthma, exacerbation Fe 3 Chiki Umana. [address] [place] [address], [address], [place], [place], [id number], . tel:[phone] Referring Provider: Dong Monet, [address] [place] [address] [address], [place], [address] . tel:[phone] [facility], [address], [place], [place], [id number] , tel: [phone] [facility] Asthma, exacerbationDiarr hea 3 Chikinafisa Umana. [address] [place] [address], [facility] [address], [place], [id number], . tel:[phone] Referring Provider: Dong Monet, [address] [place] [address] [address], [place], [address] . tel:[phone] [employer] [facility], [address], [place], [place], [id number] , tel: [phone] [facility] Streptococcal sore throat with scarlatinaINTRINS IC ASTHMA, UNSPECIFIED 3 Chikinafisa Umana. [address] [place] [address], [facility] [address], [place], [place], [id number], [place]. tel:[phone] Referring Provider: Dong Monet, [address] [place] [address] [address], [place], [address] . tel:[phone] [facility], [address], [place], [place], [id number] , tel:[phone] [facility] Routine or child health checkAttention deficit disorder with hyperactivityRout ine infant or child health check 2 Chiki Umana. [address] [place] [address], [facility] [address], [place], [place], [id number], . tel:[phone] Referring Provider: Dong Monet, [address] [place] [address] [address], [place], [address] . tel:[phone] [facility], [address], [place], [place], [address] , tel: [phone] [facility] No Information 2 Chiki Umana. [address] [place] [address], [facility] [address], [place], [id number], . tel:[phone] [facility], [address], [place], [place], [address] , tel:[phone] [facility] INTRINSIC ASTHMA NOSATTN DEFICIT W HYPERACTEXTRINSIC ASTHMA NOS 1 Chiki Umana. [address] [place] [address], [facility] [address] [place] [address], [id number], . tel:[phone] Family History Family Member Type Diagnosis Age At Onset No Information Immunizations Vaccine Date Status Comments Fluzone Quad, preservative free, split virus, 0.5mL dosage administered Source: New Immunization Record Pfizer-BioNTech COVID19 Vaccine, 0.3mL per dose, 2 doses, administered 21 days apart administered Source: Other Provid er Pfizer-BioNTech COVID19 Vaccine, 0.3mL per dose, 2 doses, administered 21 days apart administered Source: Other Provid er Pfizer-BioNTech COVID19 Vaccine, 0.3mL per dose, 2 doses, administered 21 days apart administered Source: Other Provid er meningococcal B, OMV, 2 dose schedule administered Source: New Immuniza tion Record Fluzone Quad, preservative free, split virus, 0.5mL dosage administered Source: New Immunization Record meningococcal MCV4P administered Source: New Immunization Record meningococcal B, OMV, 2 dose schedule administered Source: New Immuniza tion Record Fluzone-Flulaval Quad, preservative free, split virus, 0.5mL dosage administered Source: New Immuniza tion Record Influenza, injectable, quadrivalent, preservative free, 3 yrs or older administered Source: New Immuniz ation Record HPV (9-valent) administered Source: New I mmunization Record HPV (9-valent) administered Source: New I mmunization Record meningococcal MCV4P administered Source: New Immunization Record Tdap administered Source: New Imm unization Record Influenza, injectable, quadrivalent, preservative free, 3 yrs or older administered Source: New Immuniz ation Record Flu (split) (3 yrs or older) administered Source: New Immunization Record Hep A administered Source: New Imm unization Record Varicella administered Source: New Imm unization Record MMR administered Source: New Imm unization Record Polio administered Source: New Imm unization Record DTaP/DTP/DT administered Source: New Imm unization Record Hep A administered Source: New Imm unization Record DTaP/DTP/DT administered Source: New Imm unization Record Varicella administered Source: New Imm unization Record MMR administered Source: New Imm unization Record PCV7 administered Source: New Imm unization Record Polio administered Source: New Imm unization Record Hib administered Source: New Imm unization Record DTaP/DTP/DT administered Source: New Imm unization Record Hep B administered Source: New Imm unization Record PCV7 administered Source: New Imm unization Record Polio administered Source: New Imm unization Record Hib administered Source: New Imm unization Record DTaP/DTP/DT administered Source: New Imm unization Record DTaP administered Source: Other P rovider PCV7 administered Source: New Imm unization Record Polio administered Source: New Imm unization Record Hib administered Source: New Imm unization Record Hep B administered Source: New Imm unization Record Hep B administered Source: New Imm unization Record Payers Payer name Insurance type Covered libertarian ID Authoriza [id number](s) [employer] CI [id number] [employer] CI [id number] [facility] CI [id number] [employer] CI [id number] [employer] CI [id number] [employer] CI [id number] [employer] CI [id number] Social History Type Description Quantity Date Captured Comments Alcohol Use Details Unknown Caffeine Use Details Unknown Tobacco Use Status No Information Smoking Status No Information Sex Female Chief Complaint And Reason For Visit No Information Reason For Referral Reason For Referral No Information Plan Of Treatment Date Type Action Status Goal Dietary management education , guidance, and counseling completed Goal Dietary management education , guidance, and counseling completed Goal Dietary management education , guidance, and counseling completed Goal Dietary management education , guidance, and counseling completed Goal Dietary management education , guidance, and counseling completed Goal Dietary management education , guidance, and counseling completed Goal Dietary management education , guidance, and counseling completed Goal Dietary management education , guidance, and counseling completed Goal Dietary management education , guidance, and counseling completed Goal Dietary management education , guidance, and counseling completed Goal Dietary management education , guidance, and counseling completed Goal Dietary management education , guidance, and counseling completed Referral [place]: [place] [address] [facility] [place] [address] [place], [phone] Ordered: Referrals: Orthopedic Surgery. Gabriel Johnson MD. Evaluate and treat - Level 2 ordered Referral [place]: [place] [address] [facility]
[address] [place], [place], [phone] Ordered: Referrals: Orthopedic Surgery. Radhika Redman MD. Evaluate and treat - Level 2 ordered Referral Referred To: Meka Mariscal MD [address] [place], [phone] Ordered: Referrals: Dermatology. Meka Mariscal MD. Evaluate and treat - Level 2 ordered History Of Present Illness Encounter Date Complaint History Of Prese nt Illness acute problem Chief complaint: gerd.Symptoms started 1 weeks ago; are moderate; occur intermittently; are stable. here by self 1 week of heartburn famotidine no help concern re heartburn no v/d no fever well exam Asthma: doing we ll on symbicort BID. Rarely needs albuterol. Britta nighttime awakenings. Well controlled. Right shoulder pain. Intermittent. Feels like something is being pinched in the shoulder. No movements or activities make it worse. control. Doing well on control. Does not smoke or vape or joule. Regular periods when on control. Sets an alarm in the phone to remind her to take the control. No hemiplegic migraines. Migraines: Occur about 3 times a month. Rizatriptan works great as an abortive medication. Patient would like STI screening test done today. Mental health is doing well per patient report. asthma-control Kyleigh was seen today for asthma management. Her asthma is classified as Moderate Persistent. Moderate persistent asthma on Symbicort and Singulair. Stopped singulair 08/29/2020 due to black box warning..She has NO history of prior intubation/ICU care for asthma.She has not had prior hospitalization(s) for asthma.Asthma Control Test score: 211. Unlimited activity: A little of the time (4)2. Caused shortness of breath: Not at all (5)3. Interrupted sleep: Once or twice (4)4. How often using rescue med: 2 or 3 times per week (3)5. Personal rating of control: Completely controlled (5)The asthma is .Known triggers include: seasonal allergies, colds and exercise.Environmental exposure/control:Smoker: NOAsthma Medications:History of adverse reaction to therapy: NO headache Onset: gradual. Severity: moderate. It occurs intermittently, has more than one hour duration, and is improving. Location is frontal left and frontal right. There is no radiation. The patient describes it as throbbing. Timing of headache: daytime. Symptom is aggravated by anxiety. Relieving factors include sleep and Maxalt. Pertinent negatives include blurred vision, clear sinus drainage, dizziness, double vision, fever, hemianopsia left, hemianopsia right, loss of consciousness, memory impairment, nausea, neck stiffness, neurological symptoms, performance changes, personality change, phonophobia, photophobia, scintillations, scotoma, URI like symptoms, vertigo, vision loss left, vision loss right, visual aura and vomiting. Additional information: About 3 times a month. Maxalt helps. acute problem Chief complaint: Sore throat and body aches. CHIEF COMPLAINT:Pharyngitis and myalgia.HISTORY OF PRESENT ILLNESS:Kyeligh Khan is an 17-year-old female who presents today for complaint of pharyngitis and myalgia. A rapid streptococcal pharyngitis and a rapid flu test were done prior to entering the room. Patient is accompanied by her mother.She began experiencing pharyngitis approximately 2 to 3 days ago. Yesterday, 10/16/2022, she began to get headaches and myalgia, which became worse while she was at school. Patient denies any fevers. She can still taste and smell okay. She has not been around anyone who has had COVID-19, and she has not obtained a COVID-19 at-home test. Patient would like us to test for COVID-19 today. She feels tired and fatigued. Patient denies any abdominal pain, vomiting, change in bowel movements, diarrhea, or constipation. Patient denies any rashes. Patient denies any ear pain. She is still able to eat and drink okay. Patient denies any congestion or rhinorrhea. Patient's asthma is doing okay. She has needed to use her inhaler more than often. Her ADHD is doing well. Her mental health is good. She is still taking her control.PAST HISTORY:Moderate persistent asthma.ADHD.DMDD.Anxiety.CURRENT MEDICATIONS:Albuterol - every 4 hours as needed for asthma rescue.Flonase - as needed for allergic rhinitis.Hydrocortisone 1% - 3 times a day as needed for eczema.Loestrin Fe - daily for control.Rizatriptan 10 mg ODT - as needed for migraines.Symbicort 160-4.5 mcg/kg completion - 2 puffs twice a day for asthma control.Vyvanse - 60 mg every morning.Xyzal - 5 mg tablet daily for allergic rhinitis.ALLERGIES:Patient has no known allergies to foods or medications.Context notable for ill contact at home/school (Strep and [place] at school), seasonal allergen. asthma-control Kyleigh was seen today for asthma management. Her asthma is classified as Mild Intermittent. Moderate persistent asthma on Symbicort and Singulair. Stopped singulair 08/29/2020 due to black box warning..She has NO history of prior intubation/ICU care for asthma.She has not had prior hospitalization(s) for asthma.Since Her last visit for asthma control on 04/30/2022, She has had asthma related:-hospitalizations: NO-ER/Urgent care visits: NO-oral steroids: NO-rescue inhaler use: YES-Missed school/work: NOAsthma Control Test score: 191. Unlimited activity: A little of the time (4)2. Caused shortness of breath: Once or twice a week (4)3. Interrupted sleep: Once or twice (4)4. How often using rescue med: 2 or 3 times per week (3)5. Personal rating of control: Well controlled (4)The asthma is .Known triggers include: seasonal allergies, colds and exercise.Environmental exposure/control:Smoker: NOAsthma Medications:History of adverse reaction to therapy: NO acute problem Chief complaint: Body aches and back pain.. 17 year old with moderate persistent asthma presenting with body aches and back pain. Rhinorrhea and cough. Migraines. Rizatriptan helps with the migraines. Body aches. Started 3-4 days ago. Bad lower back pain. No radiation of the pain. No fevers. No PO intake an Urine output. Normal taste and smell. Albuterol use helps with the cough. Albuterol use approximately twice a day. Productive cough. Clear to cloudy mucous. Nausea and no vomiting. Context notable for ill contact at home/school ([place] [facility] [place] acute problem Chief complaint: sore throat. acute problem Chief complaint: Stomach pain and sore throat, dysuria. acute problem Chief complaint: control. Would like to restart controlLMP: 04/22/2022Normal cycles lasting 7 daysNo discharge. No vaginal rashes or lesions.No dysuria or polyuria.NOT sexually active. No blood clots. No personal or family history of bleeding disorders or clotting disorders. No migraines with aura or hemiplegic migraines. No complicated diabetes mellitus.No liver dysfunction. No Hypertension. No valvular heart disease.No prolonged immobilization.Weight is down 4 pounds from the last visit. There are no additional patient/parental concerns today. asthma-control Kyleigh was seen today for asthma management. Her asthma is classified as Moderate Persistent. Moderate persistent asthma on Symbicort and Singulair. Stopped singulair 08/29/2020 due to black box warning..Since Her last visit for asthma control on 12/28/2021, She has had asthma related:-hospitalizations: NO-ER/Urgent care visits: NO-oral steroids: NO-rescue inhaler use: YES-Missed school/work: NOAsthma Control Test score: 251. Unlimited activity: None of the time (5)2. Caused shortness of breath: Not at all (5)3. Interrupted sleep: Not at all (5)4. How often using rescue med: Not at all (5)5. Personal rating of control: Completely controlled (5)The asthma is Well Controlled.Known triggers include: seasonal allergies, colds and exercise.Environmental exposure/control:Smoker: NOAsthma Medications:History of adverse reaction to therapy: NOProper use of MDI/Spacer/Nebulizer: YES ADD/ADHD management Initial diag nosis of ADD/ADHD was on 06/02/2013SUMMARY: Doing well. No major concerns today..SCHOOL: The patient attends [employer] and grade level is eleventh grade. Things at school are described as: Doing well.HOME: At home and socially, things are described as: Doing well..MEDICATION SIDE EFFECTS: Patient is not experiencing headache; stomachache; change of appetite; trouble sleeping; irritability; socially withdrawn; extreme sadness or crying; dull, tired, listless behavior; tremors/feeling shaky; repetitive movements, tics, jerking, twitching, eye blinking; picking at skin or fingers, nail biting or lip or cheek chewing; sees or hears things that are not there.TARGET BEHAVIORS/GOALS: The following targeted behaviors/goals continue to be addressed: Academics (improved), Attention (improved), Home Behavior (improved), Impulsivity ().FOLLOW-UP RATING SCALE(S): . No diagnostic rating scale was used. acute problem Chief complaint: knee pain. Has been right knee pain since may and has progressively gotten worse. Primarily hurts with physical activity and does not hurt all the time. Hurts every 2-3 weeks. Hurts when running /jumping. After walking or sitting. Initially started . Flares up when playing basketball and when driving. No fevers. Has been playing basketball for her high school and started conditioning. Because of this knee pain she has taken Interested in physical therapy. headache Severity: modera te. It occurs intermittently. Duration: more than one hour. Location is frontal left and frontal right. There is no radiation. The describes it as throbbing. Timing of headache: daytime. Symptom is aggravated by bright lights and noise.1 Pertinent negatives include blurred vision, clear sinus drainage, dizziness, double vision, fever, hemianopsia left, hemianopsia right, loss of consciousness, memory impairment, nausea, neck stiffness, neurological symptoms, performance changes, personality change, scintillations, scotoma, URI like symptoms, vertigo, vision loss left, vision loss right, visual aura and vomiting. well exam [facility] age-appropriate confidential Adolescent Questionnaire was completed by the patient and reviewed/addressed by the provider.Asthma: see asthma control. Currently has a cold. Has used albuterol 3 times a day during this cold. ASthma symptoms are well controlled when she does not have a cold. 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 She would like this removed. She would like a referral to dermatology. Bleeding intermittently with trauma. Dysmenorrhea: Painful periods. Would like to start control. Not sexually active. Would like to become sexually active. No discharge. No painful urination. No rashes or lesions. Does not smoke, vape or juole. No hemiplegic migraines. BP is normal. No liver dysfunction, no prolonged immobility, or diabetes. Negative Urine HCG. Would like to start OCPs. Handout given on all types of control. Seasonal allergies: worse in the spring. Would like to restart Xyzal and flonase. Depression and anxiety: recently lost her grandmother. Would like to restart counseling/therapy. PHQ-9 of 3, LINSEY-7 of 5. No current suicidal ideations. asthma-control Kyleigh was seen today for asthma management. Her asthma is classified as Moderate Persistent. Moderate persistent asthma on Symbicort and Singulair. Stopped singulair 08/29/2020 due to black box warning..Since Her last visit for asthma control on 06/05/2021, She has had asthma related:-hospitalizations: NO-ER/Urgent care visits: NO-oral steroids: NO-rescue inhaler use: YES-Missed school/work: NOAsthma Control Test score: 171. Unlimited activity: Some of the time (3)2. Caused shortness of breath: Once or twice a week (4)3. Interrupted sleep: 2 or 3 nights a week (2)4. How often using rescue med: Once a week or less (4)5. Personal rating of control: Well controlled (4)The asthma is Not Well Controlled.Known triggers include: seasonal allergies, colds and exercise.Environmental exposure/control:Smoker: NOAsthma Medications:History of adverse reaction to therapy: NOProper use of MDI/Spacer/Nebulizer: YES asthma-control Kyleigh was seen today for asthma management. Her asthma is classified as Moderate Persistent. Moderate persistent asthma on Symbicort and Singulair. Stopped singulair 08/29/2020 due to black box warning..Since Her last visit for asthma control on 12/13/2020, She has had asthma related:-hospitalizations: NO-ER/Urgent care visits: NO-oral steroids: NO-rescue inhaler use: YES-Missed school/work: NOAsthma Control Test score: 201. Unlimited activity: A little of the time (4)2. Caused shortness of breath: Once or twice a week (4)3. Interrupted sleep: Once or twice (4)4. How often using rescue med: Once a week or less (4)5. Personal rating of control: Well controlled (4)The asthma is Well Controlled.Known triggers include: seasonal allergies, colds and exercise.Environmental exposure/control:Smoker: NOTobacco exposure: NOPets/animals: YES, dogsAsthma Medications:History of adverse reaction to therapy: NO sore throat acute problem Chief complaint: sore throat.Symptoms started 1 days ago; are moderate; occur constantly; are stable. Pain is localized to Throat; does not radiate.CHIEF COMPLAINT:Sore throat.HISTORY OF PRESENT ILLNESS:Kyleigh Khan is a 16-year-old female who presents today for complaint of a sore throat. I have reviewed the patient's past medical, surgical, interim, family and social histories.HISTORY OF PRESENT ILLNESS:Kyleigh Khan is a 16-year-old female with asthma, allergic rhinitis, eczema, ADHD, anxiety, depressive, and destructive mood dysregulation disorder, now presenting with his chief complaint of sore throat. The patient stated that the symptoms started yesterday 06/04/2021 about 4 or 5 PM and worsened throughout the evening. The patient continued to have sore throat this morning 06/05/2021. The patient has not had any congestion or rhinorrhea. The patient has not had any sneezing. The patient has had a mild cough this morning. The patient has not needed any albuterol for this cough. The patient denies abdominal pain. The patient denies change in bowel movements. The patient denies decreased activity. The patient has had decreased p.o. intake due to pain with swallowing. The patient has been able to tolerate fluids. The patient has been urinating normally. There are no concerns for ear pain. The patient denies fever. The patient has not had any nausea or vomiting. The patient denies rash. The patient has no known sick contacts per report. The patient has had a history of strep in the past. The patient's last positive strep per my quick chart review was in 09/2019.In regards to this patient's asthma control, the patient is diagnosed with moderate persistent asthma on Symbicort. The patient was previously on Singulair, but that was stopped on 08/29/2020 due to the new black box warning. since the patient's last visit, there had been no new hospitalizations. No emergency room or urgency care visits. No oral steroids required. The patient has used rescue inhaler but very infrequently. The patient has not missed school or work due to asthma. The patient's asthma is considered well controlled. The patient has an asthma controlled test score of 20. The patient does not wake at night due to asthma or shortness of breath or cough. The patient occasionally needs albuterol as needed. The patient on review of the medication module, the patient has had enough refills to be fairly adherent with the Symbicort controller medication for asthma. The patient's triggers for asthma include colds and exercise. The patient is currently having an episode of allergic rhinitis, as well as an episode of acute pharyngitis. The patient's environmental exposure includes a dog. However, this has not been a problem for the patient's asthma in the past. PAST HISTORY:anxietydepressiondisruptive mood dysregulation disorderasthmaADHDCURRENT MEDICATIONS:albuterol as needed for rescue medication for asthma.hydrocortisone 1% as needed for eczema.Rhinocort as needed for allergic rhinitisXyzal as needed for allergic rhinoconjunctivitisSymbicort 160 mcg-4.5 mcg per inhalation- 2 puffs twice a day for asthma control.Vyvanse 70 mg once a day in the morning for ADHD- the patient has nonadherent with this medication as the patient has not requested a medication refill since 12/2020.ALLERGIES: The patient has no known allergies to foods or medications. ATTESTATION:This note has been created using Dragon Ambient experience and was completed in the EHR by Deisi Soto.Context notable for no ill contact at home/school. ADD/ADHD management Initial diag nosis of ADD/ADHD was on 06/02/2013SUMMARY: Inattention with hyperactivity including fidgeting and talkativeness. Patient states she feels like a Zombie but lower doses were not enough. Able to tolerate side effects..SCHOOL: The patient attends [employer] and grade level is tenth grade. Things at school are described as: Able to focus when takes the medication.MEDICATION SIDE EFFECTS: Patient is not experiencing headache; stomachache; change of appetite; trouble sleeping; irritability; socially withdrawn; extreme sadness or crying; dull, tired, listless behavior; tremors/feeling shaky; repetitive movements, tics, jerking, twitching, eye blinking; picking at skin or fingers, nail biting or lip or cheek chewing; sees or hears things that are not there.TARGET BEHAVIORS/GOALS: The following targeted behaviors/goals continue to be addressed: Academics (), Attention (), Home Behavior (), Impulsivity ().FOLLOW-UP RATING SCALE(S): . No diagnostic rating scale was used. acute problem Chief complaint: COVID check. 15 year old F with asthma and ADHD presenting for a COVID-19 test due to exposure. The patient was exposed to COVID-19 on 12/08/2020. The patient has had No cough, shortness of breath, congestion, loss of taste or smell, myalgias, sore throat, emesis, loose stools, fever. She has had chest paint sternal nonradiating worse with laying down associated with heartburn, Ranitidine helped with the chest pain in the past. Also has asthma. New dog at home that sleeps in the bed with her may also be contributing to the chest pain. Lost 8 pounds since August. asthma-control Kyleigh was seen today for asthma management. Her asthma is classified as Moderate Persistent. Moderate persistent asthma on Symbicort and Singulair. Stopped singulair 08/29/2020 due to black box warning..She has had asthma related:-hospitalizations: NO-ER/Urgent care visits: NO-oral steroids: NO-rescue inhaler use: YES-Missed school/work: NOAsthma Control Test score: 201. Unlimited activity: A little of the time (4)2. Caused shortness of breath: Once or twice a week (4)3. Interrupted sleep: Once or twice (4)4. How often using rescue med: Once a week or less (4)5. Personal rating of control: Well controlled (4)The asthma is Well Controlled.Known triggers include: colds and exercise.Environmental exposure/control:Smoker: NOTobacco exposure: NOPets/animals: YES, dogsAsthma Medications:History of adverse reaction to therapy: NO 2nd Bexsero well exam Asthma: See asth ma controlADHD: See ADHDMental Desmond: Significantly improved. Off al medications.Sleep: Improved. gained 20 pounds since December 2019.There are no additional patient/parental concerns today. asthma-control Kyleigh was seen today for asthma management. Her asthma is classified as Mild Intermittent. Moderate persistent asthma on Symbicort and Singulair. Stopped singulair 08/29/2020 due to black box warning..Since Her last visit for asthma control on 07/11/2020, She has had asthma related:-hospitalizations: NO-ER/Urgent care visits: NO-oral steroids: NO-rescue inhaler use: YES-Missed school/work: NOAsthma Control Test score: 191. Unlimited activity: Some of the time (3)2. Caused shortness of breath: Once or twice a week (4)3. Interrupted sleep: Once or twice (4)4. How often using rescue med: Once a week or less (4)5. Personal rating of control: Well controlled (4)The asthma is Well Controlled.Known triggers include: colds and exercise.Environmental exposure/control:Smoker: NOTobacco exposure: NOPets/animals: YESAsthma Medications:History of adverse reaction to therapy: NO ADD/ADHD management Initial diag nosis of ADD/ADHD was on 06/02/2013SUMMARY: ADHD and behavior and mental health have improved..SCHOOL: The patient attends [employer] and grade level is tenth grade. Things at school are described as: Grades are okay. Difficulty with attention. Father thinks restarting medication would be helpful..HOME: At home and socially, things are described as: Improved..MEDICATION ADDRESSED TODAY: lisdexamfetamine dimesylate (VYVANSE) 70 mg- currently being taken Not taking. To continue with current medication, no change indicated.MEDICATION SIDE EFFECTS: Patient is not experiencing headache; stomachache; change of appetite; trouble sleeping; irritability; socially withdrawn; extreme sadness or crying; dull, tired, listless behavior; tremors/feeling shaky; repetitive movements, tics, jerking, twitching, eye blinking; picking at skin or fingers, nail biting or lip or cheek chewing; sees or hears things that are not there.TARGET BEHAVIORS/GOALS: The following targeted behaviors/goals continue to be addressed: Academics (), Attention (), Home Behavior (), Impulsivity ().FOLLOW-UP RATING SCALE(S): . No diagnostic rating scale was used. acute problem Chief complaint: sore throat.Symptoms started 4 days ago; are moderate; occur constantly; are stable. This is a new onset problem. Pain is localized to throat; does not radiate.15 year old presenting with sore throat. On Saturday, she noted her throat was itchy. Saturday fever to 100.5F. Then she developed a cough. Albuterol helps with the cough. Muscles ache but tylenol helped the aches. Productive cough with White to clear mucous. Productive cough. No hoarse voice. Fatigue and tiredness. Mild decreased solid PO intake, tolerating fluids and normal urine output. No nausea, vomiting, or diarrhea. No rash. No fever.Context notable for ill contact at home/school (Mother sick with similar symptoms.), seasonal allergen. asthma-control Kyleigh was seen today for asthma management. Her asthma is classified as Moderate Persistent. Moderate persistent asthma on Symbicort and Singulair..Since Her last visit for asthma control on 09/28/2019, She has had asthma related:-hospitalizations: NO-ER/Urgent care visits: NO-oral steroids: NO-rescue inhaler use: YES-Missed school/work: NO1. Status today: 2. Problem running/exercise/sport: 3. Cough: 4. Night wakin. #Days daytime symptoms/last weeks: 6. #Days wheezing/last 4 weeks: 7. #Days waking at night/last 4 weeks: 1. Unlimited activity: 2. Caused shortness of breath: 3. Interrupted sleep: 4. How often using rescue med: 5. Personal rating of control: The asthma is Not Well Controlled.Known triggers include: colds and exercise.Environmental exposure/control:Smoker: NOTobacco exposure: NOPets/animals: YESAsthma Medications:History of adverse reaction to therapy: NO acute problem Chief complaint: sore throat.Symptoms started 3 days ago; are mild; occur intermittently; are stable. here with dad concern re stre mild itchy scratchy st able to swallow and lie down no known exposure to strep or covid 19 has not been using sympbicortContext notable for no ill contact at home/school. asthma-control Kyleigh was seen today for asthma management. Her asthma is classified as Moderate Persistent. Moderate persistent asthma on Symbicort and Singulair..She has had asthma related:-hospitalizations: NO-ER/Urgent care visits: NO-oral steroids: NO-rescue inhaler use: YES-Missed school/work: NOAsthma Control Test score: 251. Unlimited activity: None of the time (5)2. Caused shortness of breath: Not at all (5)3. Interrupted sleep: Not at all (5)4. How often using rescue med: Not at all (5)5. Personal rating of control: Completely controlled (5)The asthma is Well Controlled.Known triggers include: colds and exercise.Environmental exposure/control:Smoker: NOTobacco exposure: NOPets/animals: YESAsthma Medications:History of adverse reaction to therapy: NO ADD/ADHD management Initial diag nosis of ADD/ADHD was on 06/02/2013SPECIALIST(S): The patient continues to be seen by Psychologist/Counselor Dr. Garcia and Psychiatrist Dr. Med SHER (In past)SCHOOL: The child attends [employer] and grade level is ninth grade. Things at school are described as: Good grades. Two grades to improve..HOME: At home and socially, things are described as: Increased depression..MEDICATIONS: Medication(s) addressed today: lisdexamfetamine dimesylate (VYVANSE) 70 mg - takes daily and lisdexamfetamine dimesylate (VYVANSE) 70 mg - takes as noted in comments. Medication comment Ran out.MEDICATION SIDE EFFECTS: Include headache; change of appetite. Patient is not experiencing stomachache; trouble sleeping; irritability; socially withdrawn; extreme sadness or crying; dull, tired, listless behavior; tremors/feeling shaky; repetitive movements, tics, jerking, twitching, eye blinking; picking at skin or fingers, nail biting or lip or cheek chewing; sees or hears things that are not there.TARGET BEHAVIORS/GOALS: The following targeted behaviors/goals continue to be addressed: Academics (improved), Attention (improved), Home Behavior (improved), Impulsivity (improved).FOLLOW-UP RATING SCALE(S): . The Lockbourne scale was reviewed for follow-up status. The follow-up scale was completed by a parent.SUMMARY: Poor adherence with medication. Poor attention.Significant Weight gain. snacking. depressed. Unable to see her counselor. Hyperactive symptoms are stable. Increased Depression score. No suicidal or homicidal ideations. Sleep improving. Needs refills on medications.Allergies: sneezing and clear rhinorrhea. Used a nose spray in the past. Rash on the arm over the deltoid muscle consistent with keratosis pilaris. Mother requested antibiotic ointment for this rash.Depression: Lacks interested in things she used to enjoy and unable to do enjoyable activities due to the pandemic. Sad most days. Problems sleeping. Feels guilt like things are her fault. Did not get to go on the cruise. Lacks energy. Always tired. Poor concentration. Agitated and fidgets often. Increase in appetite. No suicidal ideations. Sleep: able to sleep with Trazodone.. Telehealth This visit was c ompleted via telehealth using the Interm[employer] software. asthma-control Kyleigh was seen today for asthma management. Her asthma is classified as Moderate Persistent. Moderate persistent asthma on Symbicort and Singulair..Since Her last visit for asthma control on 04/14/2019, She has had asthma related:-hospitalizations: NO-ER/Urgent care visits: NO-oral steroids: NO-rescue inhaler use: YES-Missed school/work: NOAsthma Control Test score: 171. Unlimited activity: A little of the time (4)2. Caused shortness of breath: Once a day (2)3. Interrupted sleep: 2 or 3 nights a week (2)4. How often using rescue med: Not at all (5)5. Personal rating of control: Well controlled (4)The asthma is Well Controlled.Known triggers include: colds and exercise.Environmental exposure/control:Smoker: NOTobacco exposure: NOPets/animals: YESAsthma Medications:History of adverse reaction to therapy: NO acute problem Chief complaint: fever, sore throat, cough, watery eyes.Symptoms started 1-2 days ago; are moderate; occur constantly; are stable. This is a new onset problem. 14 year old with moderate persistent asthma presenting with sore throat. Sneezing a lot. Coughing. 1-2 days of sore throat. Diffuse abdominal pain. No radiation of the abdominal pain. Cough is intermittent and productive and hacking and worse at night. . Albuterol helps with the cough. Cough is worse at night. Fever of 102.2F. Frontal tight headache lasting hours. Mild decreased solid PO intake, tolerating fluids and normal urine output. No nausea, vomiting, or diarrhea. No rash. Context notable for no ill contact at home/school (Sick contacts). ADD/ADHD management Initial diag nosis of ADD/ADHD was on 06/02/2013SPECIALIST(S): The patient continues to be seen by Psychologist/Counselor and Psychiatrist Dr. Med SHER (In past)SCHOOL: The child attends [employer] and grade level is ninth grade. Things at school are described as: Grades improved! Doing well..HOME: At home and socially, things are described as: Doing well.. Medication(s) addressed today: .MEDICATION SIDE EFFECTS: Include headache; picking at skin or fingers, nail biting, lip or cheek chewing. Patient is not experiencing stomachache; change of appetite; trouble sleeping; irritability; socially withdrawn; extreme sadness or crying; dull, tired, listless behavior; tremors/feeling shaky; repetitive movements, tics, jerking, twitching or eye blinking; sees or hears things that are not there.TARGET BEHAVIORS/GOALS: The following targeted behaviors/goals continue to be addressed: Academics (improved), Attention (improved), Home Behavior (improved), Impulsivity (improved).FOLLOW-UP RATING SCALE(S): . The Lockbourne scale was reviewed for follow-up status. The follow-up scale was completed by a parent.SUMMARY: Doing very well overall. Minimal side effects. Anxiety is worse with a LINSEY-7 score of 11. Depression is improving per patient and parent. No suicidal or homicidal ideations.TAkes 100mg Trazodone for sleep. Now the patient only takes this as needed. Uses once a week. Want to wean off this medication soon.Wants a medication to help with motion sickness on the cruise that they will be going on soon.. office visit Chief complaint: ADHD F/U. ADD/ADHD management Initial diag nosis of ADD/ADHD was on 06/02/2013SPECIALIST(S): The patient continues to be seen by Psychologist/Counselor and Psychiatrist Dr. Med SHER (In past)SCHOOL: The child attends [employer] and grade level is ninth grade. Things at school are described as: Good grades. Laughing when not supposed to. Laughter is disruptive..HOME: At home and socially, things are described as: Depression. Adjustment. Adopted. Wonders why she had to leave her family and siblings did not..MEDICATIONS: Medication(s) addressed today: LISDEXAMFETAMINE DIMESYLATE (VYVANSE) 20 mg - takes daily and lisdexamfetamine dimesylate (VYVANSE) 70 mg - takes daily. Medication comment Takes each morning. Poor adherence. Especially in summer and weekends.MEDICATION SIDE EFFECTS: Include socially withdrawn; repetitive movements, tics, jerking, twitching, eye blinking; picking at skin or fingers, nail biting, lip or cheek chewing. Patient is not experiencing headache; stomachache; change of appetite; trouble sleeping; irritability; extreme sadness or crying; dull, tired or listless behavior; tremors/feeling shaky; sees or hears things that are not there.FAMILY HISTORY: Positive for Comments: Adopted. TARGET BEHAVIORS/GOALS: The following targeted behaviors/goals continue to be addressed: Academics (improved), Attention (improved), Home Behavior (improved), Impulsivity (improved).FOLLOW-UP RATING SCALE(S): . The Roney scale was reviewed for follow-up status. The follow-up scale was completed by a parent.SUMMARY: Overall she is doing well. She stopped seeing her psychiatrist. She has been stable on her current doses of medications. However, she feels knocked down and a downer when she takes her Risperidone in the morning. Mild side effects per patient. Poor adherence on weekends and in the past. No change in medication doses for 2 years. Depression: On citalopram 10mg QD. Sees a counselor. PHQ-9 score of 12 which is the same as the last visit. States she is doing well. Denies Suicidal or homicidal ideations. Adopted. Wonders why she had to leave her family and siblings did not. Supportive adoptive family. Trazodone is for sleep. Initially prescribed by Psychiatry. Has been stable on this dose for 2 years. No recent labs while on Risperdone.. asthma-control Kyleigh was seen today for asthma management. Her asthma is classified as Moderate Persistent. Moderate persistent asthma on Symbicort and Singulair..She has had asthma related:-hospitalizations: NO-ER/Urgent care visits: NO-oral steroids: NO-rescue inhaler use: YES-Missed school/work: NOAsthma Control Test score: 201. Unlimited activity: A little of the time (4)2. Caused shortness of breath: Once or twice a week (4)3. Interrupted sleep: Once or twice (4)4. How often using rescue med: Once a week or less (4)5. Personal rating of control: Well controlled (4)The asthma is Well Controlled.Known triggers include: colds and exercise.Environmental exposure/control:Smoker: NOTobacco exposure: NOPets/animals: NOAsthma Medications:History of adverse reaction to therapy: NO well exam ADHD: on risperi done and vyvanse. Managed by psychiatry. Asthma: very poorly controlled. Very poor adherence with symbicort. Patient states that when she takes the medication regularly her asthma is very well controlled. Positive depression screening: PHQ-9score of 12. She has seen a counselor in the past and would like to see one again.There are no additional patient/parental concerns today. asthma-control Kyleigh was seen today for asthma management. Her asthma is classified as Moderate Persistent. Moderate persistent asthma on Symbicort and Singulair..Since Her last visit for asthma control on 10/11/2016, She has had asthma related:-hospitalizations: NO-ER/Urgent care visits: NO-oral steroids: NO-rescue inhaler use: YES-Missed school/work: NOAsthma Control Test score: 191. Unlimited activity: A little of the time (4)2. Caused shortness of breath: Once or twice a week (4)3. Interrupted sleep: Once or twice (4)4. How often using rescue med: 2 or 3 times per week (3)5. Personal rating of control: Well controlled (4)The asthma is Not Well Controlled.Known triggers include: colds and exercise.Environmental exposure/control:Smoker: NOTobacco exposure: NOPets/animals: NOAsthma Medications:History of adverse reaction to therapy: NOProper use of MDI/Spacer/Nebulizer: YESMedication comments: Occasional omissions with symbicort per patient. However, patient has not has not been seen for 8 months and only had refills available for 6 months.dry hacking non-productive cough that is intermittent and worse at night in the setting of a sore throat. acute problem Chief complaint: sore throat, cough, body pains.Symptoms started 3-4 days ago; are moderate; occur constantly; are stable. This is a new onset problem. 13 year old F with moderate persistent asthma and ADHD presenting with sore throat, cough, body pains. Warm to touch yesterday. Dry non-productive hacking cough which is intermittent. cough is Worse at nighttime. Decreased solid intake. Hurts with solids. Tolerating fluids. Normal Urine output. Clear to white rhinorrhea. Mild nausea. No vomitting. No rash. Context notable for seasonal allergen, recent cold/URI but no daycare attendance or ill contact at home/school. Functional Status Date Functional Assessmen t No Information Instructions Date Instruction Additional Infor obi take prilosec upon a wakening if no better by SaturdayJuly 08 call Related to Gastroesophageal reflux disease, unspecified whether esophagitis present We will call you marielos mcnair the results. -TRK Related to Routine screening for STI (sexually transmitted infection) Continue symbicort 2 puffs twice a day. Set an alarm in your phone to help remember this medication,Use albuterol per asthma action planFollow up in 6 monthsReviewed asthma action plan.- Asthma is a chronic condition which can cause wheezing, cough, or shortness of breath. This can be triggered by viruses, allergens exercise, and change in weather. These triggers cause the lung breathing tubes to shrink and produce increased mucous.- Call the office if your child needs albuterol treatments more often then every 4 hours, if your child needs albuterol treatments every 4 hours for more than 24 hours, if your child is having difficulty breathing or if you have other concerns.- Call the office if your child is using albuterol more than 1-2 times per week, has asthma related nighttime cough more than once a month, or has cough or shortness of breath with play or exercise. This can indicate that your child's asthma is not under control. Related to Moderate persistent asthma without complication Referral to orthoped ics made. We will call you to set this up. Related to Pain of right shoulder region Well [facility]. Patient is doing well and is healthy. Anticipatory guidance given and handout provided to patient/family. Normal physical exam. Vaccines given if appropriate according to normal vaccine schedule. Related to Encounter for well adult exam with abnormal findings Take the contr ol pills at the same time every day. Set an alarm in your phone to help you remember. Do NOT smoke, vape or Joule while taking control, this can put you at higher risk for blood clots. Possible common Side effects include break through bleeding usually worse in the first 2-3 months, headaches, weight gain. Blood clots are a rare side effect. If you choose to have sex, be sure to use a condom in addition to oral brth control to prevent STDs and as an additional protection against . Oral control pills are not 100% effective against . Related to control counseling Refilled migraine me dication. A migraine is a headache that usually causes unilateral frontal throbbing often causing nausea that are often worsened by loud noises or bright lights. These headaches last hours. You should take ibuprofen (15mg/kg with a max of 800mg) at the start of a headache. Drink plenty of fluids. We may have prescribed a medication called a triptan (Maxalt 5mg for <40kg, 10mg for >40kg) today. This medication is to be taken at the start of a migraine and you can take a max of 2 doses of any triptan in 24 hours. If you have more than 4 migraines a month, you may need a prophylactic medication (an every day medicine to prevent headaches) called amitriptyline. Call if the headaches wake you up from sleep, if you have any difficulties walking, if you notice any symptoms on just one side of the body, or if you have the worst headache of your life or if you have any new symptoms.ATTESTATION:This note has been created using [employer] and was completed in the EHR by Junie Sommer. Related to Migraine without status migrainosus, not intractable, unspecified migraine type Medication management Giving encouragement to exercise Related to Body mass index (BMI) pediatric, 85th percentile to less than 95th percentile for age Dietary management e ducation, guidance, and counseling Related to Body mass index (BMI) pediatric, 85th percentile to less than 95th percentile for age Well Child 12-21 Years Take the contr ol pills at the same time every day. Set an alarm in your phone to help you remember. Do NOT smoke, vape or Joule while taking control, this can put you at higher risk for blood clots. Possible common Side effects include break through bleeding usually worse in the first 2-3 months, headaches, weight gain. Blood clots are a rare side effect. If you choose to have sex, be sure to use a condom in addition to oral brth control to prevent STDs and as an additional protection against . Oral control pills are not 100% effective against . Related to control counseling Continue Vyvanse 60m g once a day in the morning with food. Follow up needed in 3 months or sooner if needed. Continue to take your medication as prescribed. Call our office if you are experiencing any side effects which significantly impact your appetite and sleep patterns. It's important to develop organizational skills to help you perform at school at an optimum level. Use a funeral planner, calendars, computer apps, or other tips to help you manage time, homework and family responsibilities. Patients need to be seen every 6 months to monitor progress and effectiveness of the medication. One of the appointments should be a check up and ADHD followup combination. Please be sure to stay current with your appointments. Please visit [employer] and print the [place] ADHD questionnaires before the next visit. Ask each of your child's teachers to complete the questionnaire and bring it to the appt with you or have the teacher mail or fax it to our office. This information is vital for us to understand your child's performance/behavior during school hours.Status: Requires more self-management coaching. Goals: Your child should take their ADHD medicine every day. Use correct behavioral techniques to guide behavior of your child. Return to the office for an ADHD medicine check in 6 months. Please fill out the parent and teacher ADHD forms before your next visit. Related to Attention-deficit hyperactivity disorder, combined type Rapid strep is posit jaron. Take amoxicillin twice a day for 10 days. Strep pharyngitis is a bacterial infection caused by group A strep. Take the antibiotic as prescribed. Antibiotics will help prevent a complication associated with strep throat call rheumatic fever. Encourage adequate hydration. Call if symptoms worsen or do not improve. Your child may return to school after 24 hours of antibiotics if the child remains fever free. If your child has a fever, he will need to stay out of school/daycare for 24 hours after the last fever. After your child has completed 24 hours of antibiotics, please replace the toothbrush or wash it in the curtain cutter hand. Related to Acute streptococcal pharyngitis Give Prednisolone 50 mg once a day for 5 days. give albuterol at least three times daily if coughing and every 4 hours if needed. If this is not helping callUsing Symbicort 2 puffs twice daily will help make asthma less frequent and less severeATTESTATION:This note has been created using [employer] and was completed in the EHR by Charlotte Sommer. Related to Moderate persistent asthma with (acute) exacerbation Medication management Give Prednisolone 50 mg once a day for 5 days. give albuterol at least three times daily if coughing and every 4 hours if needed. If this is not helping callUsing Symbicort 2 puffs twice daily will help make asthma less frequent and less severe Related to Moderate persistent asthma with (acute) exacerbation URI-A 'cold' or a UR I is a viral infection of the noise and throat. -Viruses can cause green runny nose for 7-10days that do not require antibiotics- Colds are spread by contact of secretions with touch, or by coughing or sneezing-Since there are over 200 cold viruses most children will get at least 6 colds per winter season.-Cough medicines are not felt to help 'viral colds' and are not routinely recommended for children under 5years old.-Treatment should include clearing mucous with saline and bulb syringe, and a cool humidifier .-Treatment can also include analgesics like acetaminophen and ibuprofen for sore throat and muscle aches, or fever.-Call back for immediately if breathing becomes difficult and does not improve after you clear the nose or if your child starts to act very sick.-Call back during office hours if the fever lasts 72 hours, congestion lasts more than 10-14 days, eye discharge becomes yellow, ear pain or new concerning symptoms. Related to Viral illness Dietary management e ducation, guidance, and counseling Related to Body mass index (BMI) pediatric, 85th percentile to less than 95th percentile for age Apply 1 Sopalamine p atch (1 mg/3 days) behind ear at least 4 hours prior to required antiemetic effect for use up to 72 hours; if needed for >72 hours, remove old patch and place new one behind other ear. Related to Motion sickness, initial encounter Refilled migraine me dication. A migraine is a headache that usually causes unilateral frontal throbbing often causing nausea that are often worsened by loud noises or bright lights. These headaches last hours. You should take ibuprofen (15mg/kg with a max of 800mg) at the start of a headache. Drink plenty of fluids. We may have prescribed a medication called a triptan (Maxalt 5mg for <40kg, 10mg for >40kg) today. This medication is to be taken at the start of a migraine and you can take a max of 2 doses of any triptan in 24 hours. If you have more than 4 migraines a month, you may need a prophylactic medication (an every day medicine to prevent headaches) called amitriptyline. Call if the headaches wake you up from sleep, if you have any difficulties walking, if you notice any symptoms on just one side of the body, or if you have the worst headache of your life or if you have any new symptoms.ATTESTATION:This note has been created using [employer] and was completed in the EHR by Junie Sommer. Related to Migraine without status migrainosus, not intractable, unspecified migraine type Referral to Dr. Hyun Redman with Orthopedics made today.We will call you to set up this appointment. Related to Right anterior knee pain Rapid strep is negat jaron. Pharyngitis:-Pharyngitis is the medical term for a sore throat. It can be caused viruses, bacteria or even breathing dry air. One of the most common causes of bacterial sore throat is Streptococcus . Strep Throat. -Please use acetaminophen or ibuprofen for pain. Do not share any drinks or toothbrushes. Please encourage cold liquids/foods (i.e. popsicles, ice cream, jello/pudding, ice chips, yogurt, apple sauce, gatorade) to ensure adequate hydration. You may also use throat lozenges or Chloroseptic/Cepacol spray for pain. -If your child tested positive today for Strep Throat please take the medication as prescribed. If your child tested negative today we will call you in 24-48hrs if the streptococcus culture is positive. -Please call the office if you have increasing pain such that you are unable to swallow and become dehydrated or if you have difficulty opening your mouth-If you continue to have throat pain over the next week please return for re-evaluation. Related to Acute pharyngitis, unspecified etiology Giving encouragement to exercise Related to Body mass index (BMI) pediatric, 85th percentile to less than 95th percentile for age Dietary management e ducation, guidance, and counseling Related to Body mass index (BMI) pediatric, 85th percentile to less than 95th percentile for age Rapid strep is posit jaron. Take Keflex (Cephalexin) twice a day for 10 days. Strep pharyngitis is a bacterial infection caused by group A strep. Take the antibiotic as prescribed. Antibiotics will help prevent a complication associated with strep throat call rheumatic fever. Encourage adequate hydration. Call if symptoms worsen or do not improve. Your child may return to school after 24 hours of antibiotics if the child remains fever free. If your child has a fever, he will need to stay out of school/daycare for 24 hours after the last fever. After your child has completed 24 hours of antibiotics, please replace the toothbrush or wash it in the curtain cutter hand. Related to Acute streptococcal pharyngitis Urine was very aldo ntrated on the urine test. This is consistent with mild dehydration. Drink plenty of fluids. Related to Mild dehydration This is blood in the urine, it could be due to menstruation or due to the UTI. Related to Hematuria, unspecified Dr. Lyles promotes health at all sizes. Try to eat healthy and exercise. Limit second helpings at meals. The goal is to eat 5 servings of fruits and vegetables per day. Limit fast food and junk food. Remove soda and sweetened beverages from diet. Switch to skim milk if you are not already drinking skim milk. Exercise at least 1 hour per day. Try new sports and activities. Limit screen time to 2 or less hours per day. Let your doctor know if you are interested in seeing a plant wrapper.Read the book [employer] for more information. Related to Body mass index [BMI] pediatric, greater than or equal to 95th percentile for age Take Keflex (Cephale kar) twice a day for 10 days. urinalysis shows signs of infection; take antibiotic as directed with food and push fluids. go back to old soap, no bubblebath use or shampoo in tub; use all free and clear for detergent, no fabric softener; constipation will contribute to bladder infections; follow up if not better in 2 to 3 days or worsening;Wipe front to back. Related to Urinary tract infection with hematuria, site unspecified Dietary management e ducation, guidance, and counseling Related to Body mass index (BMI) pediatric, greater than or equal to 95th percentile for age Giving encouragement to exercise Related to Body mass index (BMI) pediatric, greater than or equal to 95th percentile for age Use Symbicort 2 puff s twice a day every day to prevent asthma symptoms. Use albuterol per asthma action planFollow up for asthma needed at least every 6 monthsReviewed asthma action plan.- Asthma is a chronic condition which can cause wheezing, cough, or shortness of breath. This can be triggered by viruses, allergens exercise, and change in weather. These triggers cause the lung breathing tubes to shrink and produce increased mucous.- Call the office if your child needs albuterol treatments more often then every 4 hours, if your child needs albuterol treatments every 4 hours for more than 24 hours, if your child is having difficulty breathing or if you have other concerns.- Call the office if your child is using albuterol more than 1-2 times per week, has asthma related nighttime cough more than once a month, or has cough or shortness of breath with play or exercise. This can indicate that your child's asthma is not under control.Status: Meeting treatment plan goals. Goals: Your goal is to read and follow your Asthma Action Plan given to you today. Barriers: No barriers to goal achievement have been identified. Related to Moderate persistent asthma without complication Take the contr ol pills at the same time every day. Set an alarm in your phone to help you remember. Do NOT smoke, vape or Joule while taking control, this can put you at higher risk for blood clots. Possible common Side effects include break through bleeding usually worse in the first 2-3 months, headaches, weight gain. Blood clots are a rare side effect. If you choose to have sex, be sure to use a condom in addition to oral brth control to prevent STDs and as an additional protection against . Oral control pills are not 100% effective against . Related to OCP (oral contraceptive pills) initiation Restart Vyvanse 60mg once a day in the morning with food. Follow up needed in 3 months or sooner if needed. Continue to take your medication as prescribed. Call our office if you are experiencing any side effects which significantly impact your appetite and sleep patterns. It's important to develop organizational skills to help you perform at school at an optimum level. Use a funeral planner, calendars, computer apps, or other tips to help you manage time, homework and family responsibilities. Patients need to be seen every 6 months to monitor progress and effectiveness of the medication. One of the appointments should be a check up and ADHD followup combination. Please be sure to stay current with your appointments. Please visit [employer] and print the [place] ADHD questionnaires before the next visit. Ask each of your child's teachers to complete the questionnaire and bring it to the appt with you or have the teacher mail or fax it to our office. This information is vital for us to understand your child's performance/behavior during school hours.Status: Requires more self-management coaching. Goals: Your child should take their ADHD medicine every day. Use correct behavioral techniques to guide behavior of your child. Return to the office for an ADHD medicine check in 6 months. Please fill out the parent and teacher ADHD forms before your next visit. Related to Attention-deficit hyperactivity disorder, combined type Dietary management e ducation, guidance, and counseling Related to Body mass index (BMI) pediatric, greater than or equal to 95th percentile for age Prescribed activity/ exercise education Related to Body mass index (BMI) pediatric, greater than or equal to 95th percentile for age A migraine is a head ache that usually causes unilateral frontal throbbing often causing nausea that are often worsened by loud noises or bright lights. These headaches last hours. We have prescribed a medication called a triptan (Maxalt 5mg for <40kg, 10mg for >40kg) today. This medication is to be taken at the start of a migraine and you can take a max of 2 doses of any triptan in 24 hours. Due to concern that overuse of certain medications can make migraines worse, please do NOT take, ibuprofen, Aleve, naproxen, or tylenol. If you have more than 4 migraines a month, you may need a prophylactic medication (an every day medicine to prevent headaches) called amitriptyline. Call if the headaches wake you up from sleep, if you have any difficulties walking, if you notice any symptoms on just one side of the body, or if you have the worst headache of your life or if you have any new symptoms. Related to Migraine without aura and without status migrainosus, not intractable Please follow up [facility] (Radhika Redman MD, MPH: [phone]) and physical therapy. Please stretch knee prior to physical activity and stop physical activity if pain. Related to Right medial knee pain Jumper's knee, also known as patellar tendonitis, is a condition characterized by inflammation of your patellar tendon. This connects your kneecap (patella) to your callaway bone (tibia).For this pain it is important to follow up with physical therapy and see orthopedics for further management. Do not play through pain until following up with orthopedics. Please take ibuprofen, rest, compress, and ice knee if having pain. Related to Patellar tendinitis of right knee Take the contr ol pills at the same time every day. Set an alarm in your phone to help you remember. Do NOT smoke, vape or Joule while taking control, this can put you at higher risk for blood clots. Possible common Side effects include break through bleeding usually worse in the first 2-3 months, headaches, weight gain. Blood clots are a rare side effect. If you choose to have sex, be sure to use a condom in addition to oral brth control to prevent STDs and as an additional protection against . Oral control pills are not 100% effective against . Related to OCP (oral contraceptive pills) initiation Restart therapy. Related to Anxi ety, generalized Referral to [facility] made. We will call you to set this up. Related to Keloid Start flonase 1 spra y in each nostril once a day. Use this medication for at least a week. Know that this medication can take several days of use before it becomes effective. Allergic rhinitis:- Allergic Rhinitis is inflammation of the nasal passages. This can be caused chronically by allergies to many things in the environment like pollens, trees, grasses, dust, mold, and animal dander. - Keep windows closed and shower after playing outside. Consider mattress and pillow covers if you are concerned about year-round allergens. - Claritin, rubens, and zyrtec are available over the counter and can be taken daily during allergy season. Give at bedtime if it causes drowsiness. - If your child was prescribed a nasal steroid (i.e. flonase, nasonex, veramyst) then this should be used daily and your child should rinse their mouth or brush their teeth after use. Please call if causing nosebleeds. - Call the office if you continue to have symptoms despite using the recommended treatments. - For more information please go to [email or web address] Related to Seasonal allergic rhinitis, unspecified trigger Restart Vyvanse 60mg once a day in the morning with food. Follow up needed in 3 months or sooner if needed. Continue to take your medication as prescribed. Call our office if you are experiencing any side effects which significantly impact your appetite and sleep patterns. It's important to develop organizational skills to help you perform at school at an optimum level. Use a funeral planner, calendars, computer apps, or other tips to help you manage time, homework and family responsibilities. Patients need to be seen every 6 months to monitor progress and effectiveness of the medication. One of the appointments should be a check up and ADHD followup combination. Please be sure to stay current with your appointments. Please visit [employer] and print the [place] ADHD questionnaires before the next visit. Ask each of your child's teachers to complete the questionnaire and bring it to the appt with you or have the teacher mail or fax it to our office. This information is vital for us to understand your child's performance/behavior during school hours.Status: Requires more self-management coaching. Goals: Your child should take their ADHD medicine every day. Use correct behavioral techniques to guide behavior of your child. Return to the office for an ADHD medicine check in 6 months. Please fill out the parent and teacher ADHD forms before your next visit. Related to Attention-deficit hyperactivity disorder, combined type Doing well. Restart therapy/counseling. We will call you to set this up. Call if you would like to start a medication. Call with concerns. Go to the ER if you have any suicidal or homicidal ideations. Related to Current moderate episode of major depressive disorder, unspecified whether recurrent Use Symbicort 2 puff s twice a day every day to prevent asthma symptoms. Use albuterol per asthma action planFollow up for asthma needed at least every 6 monthsReviewed asthma action plan.- Asthma is a chronic condition which can cause wheezing, cough, or shortness of breath. This can be triggered by viruses, allergens exercise, and change in weather. These triggers cause the lung breathing tubes to shrink and produce increased mucous.- Call the office if your child needs albuterol treatments more often then every 4 hours, if your child needs albuterol treatments every 4 hours for more than 24 hours, if your child is having difficulty breathing or if you have other concerns.- Call the office if your child is using albuterol more than 1-2 times per week, has asthma related nighttime cough more than once a month, or has cough or shortness of breath with play or exercise. This can indicate that your child's asthma is not under control.Status: Meeting treatment plan goals. Goals: Your goal is to read and follow your Asthma Action Plan given to you today. Barriers: No barriers to goal achievement have been identified. Related to Moderate persistent asthma without complication [facility]. Patient is doing well and is healthy. Anticipatory guidance given and handout provided to patient/family. Normal physical exam. Vaccines given if appropriate according to normal vaccine schedule. Related to Encounter for routine child health examination without abnormal findings URI-A 'cold' or a UR I is a viral infection of the noise and throat. -Viruses can cause green runny nose for 7-10days that do not require antibiotics- Colds are spread by contact of secretions with touch, or by coughing or sneezing-Since there are over 200 cold viruses most children will get at least 6 colds per winter season.-Cough medicines are not felt to help 'viral colds' and are not routinely recommended for children under 5years old.-Treatment should include clearing mucous with saline and bulb syringe, and a cool humidifier .-Treatment can also include analgesics like acetaminophen and ibuprofen for sore throat and muscle aches, or fever.-Call back for immediately if breathing becomes difficult and does not improve after you clear the nose or if your child starts to act very sick.-Call back during office hours if the fever lasts 72 hours, congestion lasts more than 10-14 days, eye discharge becomes yellow, ear pain or new concerning symptoms. Related to Viral upper respiratory tract infection Discussed diet and e xercise. Discussed portion control. Discussed increasing fruits and vegetables. Limit fast food and junk food. Remove soda and sweetened beverages from diet. Switch to skim milk if you are not already drinking skim milk. Exercise at least 1 hour per day. Try new sports and activities. Limit screen time to 2 or less hours per day. Let your doctor know if you are interested in seeing a plant wrapper.Read the book [employer] for more information. Related to Body mass index [BMI] pediatric, 85th percentile to less than 95th percentile for age Dietary management e ducation, guidance, and counseling Related to Body mass index (BMI) pediatric, 85th percentile to less than 95th percentile for age Handout Well Child 12-21 Years Handout Use Symbicort 2 puff s twice a day every day to prevent asthma symptoms. Use albuterol per asthma action planFollow up for asthma needed at least every 6 monthsReviewed asthma action plan.- Asthma is a chronic condition which can cause wheezing, cough, or shortness of breath. This can be triggered by viruses, allergens exercise, and change in weather. These triggers cause the lung breathing tubes to shrink and produce increased mucous.- Call the office if your child needs albuterol treatments more often then every 4 hours, if your child needs albuterol treatments every 4 hours for more than 24 hours, if your child is having difficulty breathing or if you have other concerns.- Call the office if your child is using albuterol more than 1-2 times per week, has asthma related nighttime cough more than once a month, or has cough or shortness of breath with play or exercise. This can indicate that your child's asthma is not under control.Status: Meeting treatment plan goals. Goals: Your goal is to read and follow your Asthma Action Plan given to you today. Barriers: No barriers to goal achievement have been identified. Related to Moderate persistent asthma without complication Rapid COVID-19 test is negative. Related to Encounter for laboratory testing for COVID-19 virus Rapid strep is negat jaron. Pharyngitis:-Pharyngitis is the medical term for a sore throat. It can be caused viruses, bacteria or even breathing dry air. -Please use acetaminophen or ibuprofen for pain. Do not share any drinks or toothbrushes. Please encourage cold liquids/foods (i.e. popsicles, ice cream, jello/pudding, ice chips, yogurt, apple sauce, gatorade) to ensure adequate hydration. You may also use throat lozenges or Chloroseptic/Cepacol spray for pain. - If your child tested negative today we will call you in 24-48hrs if the streptococcus culture is positive. -Please call the office if you have increasing pain such that you are unable to swallow and become dehydrated or if you have difficulty opening your mouth-If you continue to have throat pain over the next week please return for re-evaluation. Related to Acute pharyngitis, unspecified Dietary management e ducation, guidance, and counseling Related to Overweight Disease process Disease process Discussed diet and e xercise. Discussed portion control. Discussed increasing fruits and vegetables. Limit fast food and junk food. Remove soda and sweetened beverages from diet. Switch to skim milk if you are not already drinking skim milk. Exercise at least 1 hour per day. Try new sports and activities. Limit screen time to 2 or less hours per day. Let your doctor know if you are interested in seeing a plant wrapper.Read the book [employer] for more information. Related to BMI pediatric, 85% to less than 95th percentile for age Okay to use Famotidi ne 20mg beba a day for 6 weeks. Related to Gastroesophageal reflux disease without esophagitis Doing well.Call if y ou would like to Restart therapy/counseling with Dr. Garcia. Call with concerns. Go to the ER if you have any suicidal or homicidal ideations. Related to Current moderate episode of major depressive disorder, unspecified whether recurrent Use Symbicort 2 puff s twice a day every day to prevent asthma symptoms. Use albuterol per asthma action planFollow up for asthma needed at least every 6 monthsReviewed asthma action plan.- Asthma is a chronic condition which can cause wheezing, cough, or shortness of breath. This can be triggered by viruses, allergens exercise, and change in weather. These triggers cause the lung breathing tubes to shrink and produce increased mucous.- Call the office if your child needs albuterol treatments more often then every 4 hours, if your child needs albuterol treatments every 4 hours for more than 24 hours, if your child is having difficulty breathing or if you have other concerns.- Call the office if your child is using albuterol more than 1-2 times per week, has asthma related nighttime cough more than once a month, or has cough or shortness of breath with play or exercise. This can indicate that your child's asthma is not under control.Status: Meeting treatment plan goals. Goals: Your goal is to read and follow your Asthma Action Plan given to you today. Barriers: No barriers to goal achievement have been identified. Related to Moderate persistent asthma without complication Restart Vyvanse 70mg once a day in the morning with food. Follow up needed in 3 months or sooner if needed. Continue to take your medication as prescribed. Call our office if you are experiencing any side effects which significantly impact your appetite and sleep patterns. It's important to develop organizational skills to help you perform at school at an optimum level. Use a funeral planner, calendars, computer apps, or other tips to help you manage time, homework and family responsibilities. Patients need to be seen every 6 months to monitor progress and effectiveness of the medication. One of the appointments should be a check up and ADHD followup combination. Please be sure to stay current with your appointments. Please visit [employer] and print the [place] ADHD questionnaires before the next visit. Ask each of your child's teachers to complete the questionnaire and bring it to the appt with you or have the teacher mail or fax it to our office. This information is vital for us to understand your child's performance/behavior during school hours.Status: Requires more self-management coaching. Goals: Your child should take their ADHD medicine every day. Use correct behavioral techniques to guide behavior of your child. Return to the office for an ADHD medicine check in 6 months. Please fill out the parent and teacher ADHD forms before your next visit. Related to Attention-deficit hyperactivity disorder, combined type Rapid COVID-19 test done today. You may return to school 7 days after the COVID-19 exposure with a negative test. Related to Exposure to COVID-19 virus Dietary management e ducation, guidance, and counseling Related to Body mass index (BMI) pediatric, 85th percentile to less than 95th percentile for age Exercises education, guidance, and counseling Related to Body mass index (BMI) pediatric, 85th percentile to less than 95th percentile for age Discussed diet and e xercise. Discussed portion control. Discussed increasing fruits and vegetables. Limit fast food and junk food. Remove soda and sweetened beverages from diet. Switch to skim milk if you are not already drinking skim milk. Exercise at least 1 hour per day. Try new sports and activities. Limit screen time to 2 or less hours per day. Let your doctor know if you are interested in seeing a plant wrapper.Read the book [employer] for more information. Related to BMI pediatric, greater than or equal to 95% for age Use Symbicort 2 puff s twice a day every day to prevent asthma symptoms. Use albuterol per asthma action planFollow up for asthma needed at least every 6 monthsReviewed asthma action plan.- Asthma is a chronic condition which can cause wheezing, cough, or shortness of breath. This can be triggered by viruses, allergens exercise, and change in weather. These triggers cause the lung breathing tubes to shrink and produce increased mucous.- Call the office if your child needs albuterol treatments more often then every 4 hours, if your child needs albuterol treatments every 4 hours for more than 24 hours, if your child is having difficulty breathing or if you have other concerns.- Call the office if your child is using albuterol more than 1-2 times per week, has asthma related nighttime cough more than once a month, or has cough or shortness of breath with play or exercise. This can indicate that your child's asthma is not under control.Status: Meeting treatment plan goals. Goals: Your goal is to read and follow your Asthma Action Plan given to you today. Barriers: No barriers to goal achievement have been identified. Related to Moderate persistent asthma without complication Restart Vyvanse 70mg once a day in the morning with food. Follow up needed in 3 months or sooner if needed. Continue to take your medication as prescribed. Call our office if you are experiencing any side effects which significantly impact your appetite and sleep patterns. It's important to develop organizational skills to help you perform at school at an optimum level. Use a funeral planner, calendars, computer apps, or other tips to help you manage time, homework and family responsibilities. Patients need to be seen every 6 months to monitor progress and effectiveness of the medication. One of the appointments should be a check up and ADHD followup combination. Please be sure to stay current with your appointments. Please visit [employer] and print the [place] ADHD questionnaires before the next visit. Ask each of your child's teachers to complete the questionnaire and bring it to the appt with you or have the teacher mail or fax it to our office. This information is vital for us to understand your child's performance/behavior during school hours.Status: Requires more self-management coaching. Goals: Your child should take their ADHD medicine every day. Use correct behavioral techniques to guide behavior of your child. Return to the office for an ADHD medicine check in 6 months. Please fill out the parent and teacher ADHD forms before your next visit. Related to Attention-deficit hyperactivity disorder, combined type Doing well.Call if y ou would like to Restart therapy/counseling with Dr. Garcia. Call with concerns. Go to the ER if you have any suicidal or homicidal ideations. Related to Current moderate episode of major depressive disorder, unspecified whether recurrent Well Child check. Ch ild is doing well and is healthy. Please refer to today's Well Visit handout for age-appropriate safety issues and anticipatory guidance. MCV4, MenB and FLU Vaccines may have been given today according to CDC/AAP recommendations. Refer to your Well Child handout on how to take care of your child if he/she has a side effect. Call our office if your child experiences a more severe reaction. Remember that annual flu vaccines are now recommended for everyone over 6 months of age. If appropriate, you have been given a health form for school/camp/sports as well as an updated copy of your child's vaccine record. Please contact our office if you have questions or concerns regarding your child's health. We would like to see your child for the next Well Visit appointment at 16 years of age[address]Like [address]. Jeevan Lyles, [facility] on Facebook for more information, great health tips, and updates about the office! Related to Encntr for routine child health exam w/o abnormal findings Dietary management e ducation, guidance, and counseling Related to Body mass index (BMI) pediatric, greater than or equal to 95th percentile for age ADHD Follow-Up Visit Plan Well Child 12-21 Years Exercises education, guidance, and counseling Related to Body mass index (BMI) pediatric, greater than or equal to 95th percentile for age Handout COVID-19 test obtain ed today. We will call your with the results. This could take up to 7 days to return but in the past has taken 2-3 days. Stay quarantined until results return. Related to Encounter for laboratory testing for COVID-19 virus Give Prednisolone 50 mg once a day for 5 days. give albuterol at least three times daily if coughing and every 4 hours if needed. If this is not helping callUsing Symbicort 2 puffs twice daily will help make asthma less frequent and less severeStatus: Meeting treatment plan goals. Related to Moderate persistent asthma with (acute) exacerbation Rapid strep is negat jaron. Coronavirus swab pending. We will call you when this returns. Give Prednisolone 50mg once a day for 5 days. Stay quarantined for 14 days. Your child has an infection of the throat likely due to a virus. The infection is called pharyngitis and causes sore throat. Antibiotics do not help viral infections. Your child does NOT need antibiotics at this time. The infection will eventually improve on its own. Drink plenty of fluids. Use tylenol or ibuprofen as needed for fever. Gurgling salt water may help with the sore throat. You may return to school when you have been afebrile for 24 hours. Call if symptoms worsen or do not improve in 3-4 days. Related to Acute pharyngitis, unspecified Disease process give albuterol at le ast three times daily if coughing and every 4 hours if needed. If this is not helping callUsing Symbicort 2 puffs twice daily will help make asthma less frequent and less severeStatus: Meeting treatment plan goals. Related to Moderate persistent asthma with (acute) exacerbation the rapid test for s trep throat today was negative if the culture is positive, we will call gargling with salt water ( 1 teaspoonful of salt in 2 cups of water) or using hard candies like cough drops may help soothe a sore throat.if there is no improvement in a few days or symptoms get worse, callcheck up in March Related to Acute pharyngitis, unspecified Medication management Your difficulty with attention today is more likely due to poorly controlled mood and worsened depression in the setting of this pandemic. Previously followed by psychiatrist and on vyvase and risperidone.Continue Vyvanse 70mg once a day in the morning with food. Continue Risperidone 0.5mg (Start taking this at night). Continue current medications. Follow up needed in 3 months or sooner if needed. Continue to take your medication as prescribed. Call our office if you are experiencing any side effects which significantly impact your appetite and sleep patterns. It's important to develop organizational skills to help you perform at school at an optimum level. Use a funeral planner, calendars, computer apps, or other tips to help you manage time, homework and family responsibilities. Patients need to be seen every 6 months to monitor progress and effectiveness of the medication. One of the appointments should be a check up and ADHD followup combination. Please be sure to stay current with your appointments. Please visit [employer] and print the [place] ADHD questionnaires before the next visit. Ask each of your child's teachers to complete the questionnaire and bring it to the appt with you or have the teacher mail or fax it to our office. This information is vital for us to understand your child's performance/behavior during school hours.Status: Requires more self-management coaching. Goals: Your child should take their ADHD medicine every day. Use correct behavioral techniques to guide behavior of your child. Return to the office for an ADHD medicine check in 6 months. Please fill out the parent and teacher ADHD forms before your next visit. Related to Attention-deficit hyperactivity disorder, combined type Rash on the arm is l ikely keratosis pilaris. No concerns at this time. Keratosis pilaris is an autosomal dominant genetic (inherited) disorder that causes sandpaper-like bumps which usually occur over the thighs, the back of the upper arms, and face. They are caused by Keratin (a protien in the skin) clogging hair follicles. They do not cause a problem and do not cause pain. They typically go away on their own and do not require any treatment.Using the antibiotic ointment will not hurt and may prevent infection. It is unlikely to cause the rash to significantly improve. Related to Keratosis pilaris Start flonase 1 spra y in each nostril once a day. Use this medication for at least a week. Know that this medication can take several days of use before it becomes effective. Allergic rhinitis:- Allergic Rhinitis is inflammation of the nasal passages. This can be caused chronically by allergies to many things in the environment like pollens, trees, grasses, dust, mold, and animal dander. - Keep windows closed and shower after playing outside. Consider mattress and pillow covers if you are concerned about year-round allergens. - Claritin, rubens, and zyrtec are available over the counter and can be taken daily during allergy season. Give at bedtime if it causes drowsiness. - If your child was prescribed a nasal steroid (i.e. flonase, nasonex, veramyst) then this should be used daily and your child should rinse their mouth or brush their teeth after use. Please call if causing nosebleeds. - Call the office if you continue to have symptoms despite using the recommended treatments. - For more information please go to [email or web address] Related to Seasonal allergic rhinitis, unspecified trigger Use Symbicort 2 puff s twice a day every day to prevent asthma symptoms. Use albuterol per asthma action planFollow up for asthma needed at least every 6 monthsReviewed asthma action plan.- Asthma is a chronic condition which can cause wheezing, cough, or shortness of breath. This can be triggered by viruses, allergens exercise, and change in weather. These triggers cause the lung breathing tubes to shrink and produce increased mucous.- Call the office if your child needs albuterol treatments more often then every 4 hours, if your child needs albuterol treatments every 4 hours for more than 24 hours, if your child is having difficulty breathing or if you have other concerns.- Call the office if your child is using albuterol more than 1-2 times per week, has asthma related nighttime cough more than once a month, or has cough or shortness of breath with play or exercise. This can indicate that your child's asthma is not under control.Status: Meeting treatment plan goals. Goals: Your goal is to read and follow your Asthma Action Plan given to you today. Barriers: No barriers to goal achievement have been identified. Related to Moderate persistent asthma with (acute) exacerbation Discussed diet and e xercise. Discussed portion control. Discussed increasing fruits and vegetables. Limit fast food and junk food. Remove soda and sweetened beverages from diet. Switch to skim milk if you are not already drinking skim milk. Exercise at least 1 hour per day. Try new sports and activities. Limit screen time to 2 or less hours per day. Let your doctor know if you are interested in seeing a plant wrapper.Read the book [employer] for more information. Related to BMI pediatric, 85% to less than 95th percentile for age Increase Citalopram to 30mg once a day. This is for anxiety and depression.Restart therapy/counseling with Dr. Garcia. If you are unable to get into see Dr. Garcia for any reason, please call our office and we will be able to help you find a new counselor or therapist for cognitive behavioral therapy.Call with concerns. Go to the ER if you have any suicidal or homicidal ideations. Related to Current moderate episode of major depressive disorder, unspecified whether recurrent On trazodone 100mg Q HS for sleep. She has been stable on this dose for 2 years. This was initially started by Psychiatry. Our goal will be to eventually wean off of this medication. Related to Sleep disturbance Medication management ADHD Follow-Up Visit Plan Use albuterol per as thma action planFollow up in 6 monthsReviewed asthma action plan.- Asthma is a chronic condition which can cause wheezing, cough, or shortness of breath. This can be triggered by viruses, allergens exercise, and change in weather. These triggers cause the lung breathing tubes to shrink and produce increased mucous.- Call the office if your child needs albuterol treatments more often then every 4 hours, if your child needs albuterol treatments every 4 hours for more than 24 hours, if your child is having difficulty breathing or if you have other concerns.- Call the office if your child is using albuterol more than 1-2 times per week, has asthma related nighttime cough more than once a month, or has cough or shortness of breath with play or exercise. This can indicate that your child's asthma is not under control.Status: Meeting treatment plan goals. Goals: Your goal is to read and follow your Asthma Action Plan given to you today. Barriers: No barriers to goal achievement have been identified. Related to Moderate persistent asthma with (acute) exacerbation Rapid strep is posit jaron. Take amoxicillin twice a day. FLU A negative. FLU B negative. Strep pharyngitis is a bacterial infection caused by group A strep. Take the antibiotic as prescribed. Antibiotics will help prevent a complication associated with strep throat call rheumatic fever. Encourage adequate hydration. Call if symptoms worsen or do not improve. Your child may return to school after 24 hours of antibiotics if the child remains fever free. If your child has a fever, he will need to stay out of school/daycare for 24 hours after the last fever. After your child has completed 24 hours of antibiotics, please replace the toothbrush or wash it in the curtain cutter hand. It is okay to use tylenol or ibuprofen as needed for fever. Related to Streptococcal pharyngitis Disease process Use Scopolamine patc hes 1 patch behind the ear 4 hours prior to the cruise. [place] every 3 days. Related to Motion sickness, initial encounter Increase Citalopram to 20mg once a day. This is for anxiety and depressionCall with concerns. Go to the ER if you have any suicidal or homicidal ideations. Related to Current moderate episode of major depressive disorder, unspecified whether recurrent On trazodone 100mg Q HS for sleep. She has been stable on this dose for 2 years. This was initially started by Psychiatry. Our goal will be to eventually wean off of this medication. Related to Sleep disturbance Previously followed by psychiatrist and on vyvase and risperidone.Continue Vyvanse 70mg once a day in the morning with food. Continue Risperidone 0.5mg (Start taking this at night). Continue current medications. Follow up needed in 3 months or sooner if needed. Continue to take your medication as prescribed. Call our office if you are experiencing any side effects which significantly impact your appetite and sleep patterns. It's important to develop organizational skills to help you perform at school at an optimum level. Use a funeral planner, calendars, computer apps, or other tips to help you manage time, homework and family responsibilities. Patients need to be seen every 6 months to monitor progress and effectiveness of the medication. One of the appointments should be a check up and ADHD followup combination. Please be sure to stay current with your appointments. Please visit [employer] and print the [place] ADHD questionnaires before the next visit. Ask each of your child's teachers to complete the questionnaire and bring it to the appt with you or have the teacher mail or fax it to our office. This information is vital for us to understand your child's performance/behavior during school hours. Related to Attention-deficit hyperactivity disorder, combined type Discussed diet and e xercise. Discussed portion control. Discussed increasing fruits and vegetables. Limit fast food and junk food. Remove soda and sweetened beverages from diet. Switch to skim milk if you are not already drinking skim milk. Exercise at least 1 hour per day. Try new sports and activities. Limit screen time to 2 or less hours per day. Let your doctor know if you are interested in seeing a plant wrapper.Read the book [employer] for more information. Related to BMI pediatric, 85% to less than 95th percentile for age Handout Dietary management e ducation, guidance, and counseling Related to Body mass index (BMI) pediatric, 85th percentile to less than 95th percentile for age ADHD Follow-Up Visit Plan Exercises education, guidance, and counseling Related to Body mass index (BMI) pediatric, 85th percentile to less than 95th percentile for age On trazodone 100mg Q HS for sleep. She has been stable on this dose for 2 years. This was initially started by Psychiatry. Our goal will be to eventually wean off of this medication. Related to Sleep disturbance Discussed diet and e xercise. Discussed portion control. Discussed increasing fruits and vegetables. Limit fast food and junk food. Remove soda and sweetened beverages from diet. Switch to skim milk if you are not already drinking skim milk. Exercise at least 1 hour per day. Try new sports and activities. Limit screen time to 2 or less hours per day. Let your doctor know if you are interested in seeing a plant wrapper.Read the book [employer] for more information. Related to BMI pediatric, 85% to less than 95th percentile for age Continue Citalopram 10mg once a day.Call with concerns. Go to the ER if you have any suicidal or homicidal ideations. Related to Current moderate episode of major depressive disorder, unspecified whether recurrent screening test due t o risperidone. GO to [facility] and have labs done. We will call you with the results. Related to Screening for diabetes mellitus Lipid screening test due to risperidone. GO to [facility] and have labs done. We will call you with the results. Related to Screening, lipid Previously followed by psychiatrist and on vyvase and risperidone.Continue Vyvanse 70mg once a day in the morning with food. Continue Risperidone 0.5mg (Start taking this at night). Continue current medications. Follow up needed in 3 months or sooner if needed. Continue to take your medication as prescribed. Call our office if you are experiencing any side effects which significantly impact your appetite and sleep patterns. It's important to develop organizational skills to help you perform at school at an optimum level. Use a funeral planner, calendars, computer apps, or other tips to help you manage time, homework and family responsibilities. Patients need to be seen every 6 months to monitor progress and effectiveness of the medication. One of the appointments should be a check up and ADHD followup combination. Please be sure to stay current with your appointments. Please visit [employer] and print the [place] ADHD questionnaires before the next visit. Ask each of your child's teachers to complete the questionnaire and bring it to the appt with you or have the teacher mail or fax it to our office. This information is vital for us to understand your child's performance/behavior during school hours. Related to Attention-deficit hyperactivity disorder, combined type Handout ADHD Follow-Up Visit Plan Exercises education, guidance, and counseling Related to Body mass index (BMI) pediatric, 85th percentile to less than 95th percentile for age Handout Dietary management e ducation, guidance, and counseling Related to Body mass index (BMI) pediatric, 85th percentile to less than 95th percentile for age Discussed diet and e xercise. Discussed portion control. Discussed increasing fruits and vegetables. Limit fast food and junk food. Remove soda and sweetened beverages from diet. Switch to skim milk if you are not already drinking skim milk. Exercise at least 1 hour per day. Try new sports and activities. Limit screen time to 2 or less hours per day. Let your doctor know if you are interested in seeing a plant wrapper.Read the book [employer] for more information. Related to BMI pediatric, 85% to less than 95th percentile for age HQ-9 score of 12 ind icated moderate depression. Patient would like to see a counselor again. Managed by Psychiatry. caregiver would like to get a suggestion from psychiatry for a counselor for CBT. I stated that we would be happy to provide recommendations for a counselor if needed. I told the caregiver to call if he would like suggestions.Call 911 or go to the ER if she has any suicidal or homicidal ideations. Related to Positive depression screening followed by ananya alonzo and on vyvase and risperidone. Continue current medications. Related to Attention-deficit hyperactivity disorder, combined type continue symbicort a m and pm and albuterol as neededStatus: Meeting treatment plan goals. Goals: Your goal is to read and follow your Asthma Action Plan given to you today. Barriers: No barriers to goal achievement have been identified. Related to Moderate persistent asthma without complication Well Child check. ild is doing well and is healthy. Please refer to today's Well Visit handout for age-appropriate safety issues and anticipatory guidance. Vaccines are up to date. . Call our office if your child experiences a more severe reaction. Remember that annual flu vaccines are now recommended for everyone over 6 months of age. If appropriate, you have been given a health form for school/camp/sports as well as an updated copy of your child's vaccine record. Please contact our office if you have questions or concerns regarding your child's health. We would like to see your child for the next Well Visit appointment at 14 years of age[address]Like [address]. Jeevan Lyles, [facility] on Facebook for more information, great health tips, and updates about the office!We now have Walk-in hours from 8-9am Saturday to ! Related to Encntr for routine child health exam w/o abnormal findings Handout Well Child 12-21 Years Dietary management e ducation, guidance, and counseling Related to Body mass index (BMI) pediatric, 85th percentile to less than 95th percentile for age Exercises education, guidance, and counseling Related to Body mass index (BMI) pediatric, 85th percentile to less than 95th percentile for age Rapid strep is posit jaron. Take amoxicillin 10mL twice a day for 10 days. Strep pharyngitis is a bacterial infection caused by group A strep. Take the antibiotic as prescribed. Antibiotics will help prevent a complication associated with strep throat call rheumatic fever. Encourage adequate hydration. Call if symptoms worsen or do not improve. Your child may return to school after 24 hours of antibiotics if the child remains fever free. If your child has a fever, he will need to stay out of school/daycare for 24 hours after the last fever. After your child has completed 24 hours of antibiotics, please replace the toothbrush or wash it in the curtain cutter hand.FLU vaccine given today. Related to Acute streptococcal pharyngitis Use albuterol every 4 hours until symptoms improve then as needed per asthma action plan. Call if you need albuterol more than every 4 hours as she may need an oral steroid.Continue symbicort 2 puffs twice a day. Set an alarm in your phone to help remember this medication,Use albuterol per asthma action planFollow up in 6 monthsReviewed asthma action plan.FLU vaccine given today.- Asthma is a chronic condition which can cause wheezing, cough, or shortness of breath. This can be triggered by viruses, allergens exercise, and change in weather. These triggers cause the lung breathing tubes to shrink and produce increased mucous.- Call the office if your child needs albuterol treatments more often then every 4 hours, if your child needs albuterol treatments every 4 hours for more than 24 hours, if your child is having difficulty breathing or if you have other concerns.- Call the office if your child is using albuterol more than 1-2 times per week, has asthma related nighttime cough more than once a month, or has cough or shortness of breath with play or exercise. This can indicate that your child's asthma is not under control.Status: Not meeting treatment plan goals. Goals: Your goal is to read and follow your Asthma Action Plan given to you today. Barriers: No barriers to goal achievement have been identified. Related to Moderate persistent asthma with (acute) exacerbation Medication management Immunizations Medication management Assessments Type Assessment Date No Information Patient Care Teams Name Effective Dates (start - stop) Status Members No Information"
[2025-01-24 16:11] VITALS: BP 114/85; PULSE 87; RESP 20; O2SAT 100
== END 2025-01-24 16:13 | disposition home or self-care (01) ==
PROVIDERS: Emergency Provider Student in an Organized Health Care Education/Training Program
DX: R55 Syncope and collapse (principal); R07.9 Chest pain, unspecified; J45.909 Unspecified asthma, uncomplicated; R94.31 Abnormal electrocardiogram [ECG] [EKG]
CPT/HCPCS: 36415; 71046; 80053; 82948; 83735; 84703; 85025; 93005; 96361; 96374; 99284; J1885; J7120